=== PATIENT | female | born 1950 | race Caucasian/White ===

== ENCOUNTER 2022-03-28 16:11 | Emergency (ER) | payer MEDICARE, SELFPAY ==
--- NOTE | ~2022-03-28 | XR_ITS ---
EXAMINATION: XR chest 2V 03/28/2022 17:19 INDICATION: Dizziness. Chest pain. PROCEDURE: 2 view chest COMPARISON: No prior studies for comparison. FINDINGS: The lungs are clear. The cardiomediastinal silhouette is within normal limits. There are no pleural effusions. There is no pneumothorax suspected. There is a hiatal hernia. IMPRESSION: 1: NO ACUTE CARDIOPULMONARY DISEASE. Reviewed, dictated and finalized at location A.
--- NOTE | ~2022-03-28 | CT_ITS ---
EXAMINATION: CTA brain carotid DATE: 03/28/2022 20:46 CDT INDICATION: New vertigo. TECHNIQUE: Computed tomographic angiography (CTA) of the head was performed without and with 100 mL O mnipaque-350 intravenous contrast. CTA of the neck was performed with intravenous contrast. The dose- length product was 1077.22 mGy-cm. Maximum intensity projection and volume rendered 3D-reconstruction s were created by the technologist on a separate workstation. Automated exposure control and iterativ e reconstruction technique were employed. COMPARISON: CT dated 03/28/2022. FINDINGS: HEAD CTA: The anterior, middle and posterior cerebral arteries are symmetric without aneurysm, signif icant stenosis, occlusion. Vertebral and basilar arteries are unremarkable. NECK CTA: The visualized aspects of the thoracic aorta are unremarkable. There is no significant athe rosclerotic change of the carotid arteries. The common, internal and external carotid arteries are sy mmetric without significant stenosis, occlusion or dissection. Vertebral arteries are unremarkable. L leatha apices are unremarkable. There is 0% stenosis of the proximal right internal carotid artery relative to normal distal artery l umen diameter (NASCET criteria). There is 0% stenosis of the proximal left internal carotid artery re lative to normal distal artery lumen diameter. IMPRESSION: 1: No significant vascular abnormality of the neck or intracranial arteries. No evidence for signifi cant stenosis, occlusion, dissection or aneurysm. Reviewed, dictated and finalized at location A. IMPRESSION: 1: No significant vascular abnormality of the neck or intracranial arteries. N o evidence for significant stenosis, occlusion, dissection or aneurysm.
--- NOTE | ~2022-03-28 | CT_ITS ---
EXAMINATION: CT BRAIN W/O DATE: 03/28/2022 17:15 INDICATION: Dizziness TECHNIQUE: Computed tomography (CT) of the head was performed without intravenous contrast. The dose- length product was 529.67 mGy-cm. Automated exposure control and iterative reconstruction technique w ere employed. COMPARISON: No prior studies for comparison. FINDINGS: Normal brain parenchymal volume for age. Normal flanagan-white differentiation. No acute intrac ranial hemorrhage, infarction, mass or mass effect. There are scattered mild periventricular and subc ortical white matter changes, most likely related to small vessel ischemic disease (microangiopathy). No ventriculomegaly or midline shift. Midline sagittal images demonstrate a normal corpus callosum, c raniovertebral junction and sella turcica. Basilar cisterns are patent. Paranasal sinuses and mastoids are pneumatized. No depressed skull fractures. IMPRESSION: 1. No acute intracranial abnormality. 2: Chronic age-related findings. Reviewed, dictated and finalized at location A.
[2022-03-28 16:19] VITALS: BP 181/83; PULSE 83; RESP 16; TEMP 35.7; O2SAT 95
--- NOTE | 2022-03-28 16:27 | ECG_ITS ---
Measurements Intervals [place] Rate: 81 P: 57 NM: 144 QRS: 48 QRSD: 155 T: 13 QT: 421 QTc: 489 Interpretive Statements SINUS RHYTHM RIGHT BUNDLE BRANCH BLOCK BASELINE ARTIFACT- II, III, AVF, V5-V6 ABNORMAL ECG Electronically Signed On 03-28-2022 17:19:26 CDT by Joshua Simpson D.O.
[2022-03-28 17:14] LABS: Basophils Absolute Auto 0.1 K/mm3 (0.0-0.1); Eosinophils Absolute Auto 0.2 K/mm3 (0-0.3); Eosinophils Percent Auto 4.1 % (0-4.4); Hematocrit 42.9 % (37.0-47.0); Hemoglobin 14.1 g/dL (12.0-15.0); Immature Granulocyte Absolute 0.02 K/mm3 (0.00-0.031); Immature Granulocyte Percent A 0.4 % (0-0.5); Lymphocytes Absolute Auto 1.67 K/mm3 (0.9-3.2); Mean Corpuscular HGB Conc 32.9 g/dl (32-36); Mean Corpuscular Hemoglobin 34.5 pg (26-34); Mean Corpuscular Volume 104.9 fl (80-100); Mean Platelet Volume 10.1 fl (7.4-10.4); Monocytes Absolute Auto 0.3 K/mm3 (0.1-0.6); Monocytes Percent Auto 5.6 % (2.6-8.5); Neutrophils Absolute Auto 3.1 K/mm3 (1.3-6.7); Neutrophils Percent Auto 56.9 % (45.5-73.1); Platelet Count Result 283 k/mm3 (150-375); Red Blood Count 4.09 M/mm3 (4.2-5.4); Red Cell Distribution Width 12.5 % (11.5-14.5); White Blood Count 5.4 K/mm3 (4.5-10.0)
[2022-03-28 17:29] LABS: Alanine Aminotransferase 19 U/L (6-35); Albumin Level 4.5 g/dL (3.5-5.1); Alkaline Phosphatase 101 U/L (38-126); Anion Gap 9 mmol/L (8-16); Aspartate Amino Transferase 33 U/L (14-36); Bilirubin,Total 0.5 mg/dL (0.2-1.3); Blood Urea Nitrogen 16 mg/dL (7-17); Calcium 9.1 mg/dL (8.4-10.2); Carbon Dioxide 27 mmol/L (22-30); Chloride 105 mmol/L (98-107); Estimated CRCL calculation 50 ml/min; Estimated Glomerular Filt Rate 55; Glucose 98 mg/dL (65-110); Sodium 141 mmol/L (137-145)
--- NOTE | 2022-03-28 17:35 | ED.DIZZY ---
HPI - Dizziness General Chief Complaint: Dizziness Stated Complaint: Dizzy, Off Balance Time Seen by Provider: 03/28/22 17:02 Source: patient Mode of arrival: ambulatory Limitations: no limitations History of Present Illness HPI Narrative: This is a 71-year-old female that presents to the emergency department for dizziness ongoing since yesterday. Today reports she feels like the room is spinning and she feels off balance. No previous similar episodes. Reports her balance got worse today which prompted her to be seen. No associated symptoms. Denies fever, chest pain, shortness of breath, vision changes, vomiting, numbness, or weakness. Related Data Home Medications Medication Instructions Recorded Confirmed escitalopram oxalate 20 mg tablet 20 tablet PO DAILY 03/28/22 03/28/22 nortriptyline 75 mg capsule 75 cap PO DAILY 03/28/22 03/28/22 Allergies Allergy/AdvReac Type Severity Reaction Status Date / Time Penicillins Allergy Unknown Other Verified 03/28/22 16:32 Review of Systems Review of Systems: CONSTITUTIONAL: Denies feve EYES: Denies visual changes CARDIOVASCULAR: Denies chest pain, palpitations, or edema. RESPIRATORY: Denies dyspnea. GASTROINTESTINAL: Reports nausea. Denies vomiting NEUROLOGIC: Denies headache, numbness, or weakness. All systems reviewed & are unremarkable except as noted in HPI and below PMFSH Past Medical History Medical History (Updated 03/28/22 @ 22:05 by Jud Chacko PA-C) History of depression Social History Social History (Updated 03/28/22 @ 17:38 by Jud Chacko PA-C) Smoking status: Never smoker Exam Narrative: GENERAL: Well-appearing, well-nourished, and in no acute distress. HEAD: Normocephalic, atraumatic. EYES: PERRLA and EOMI. ENT: Nares clear, no rhinorrhea or epistaxis. Mucous membranes moist. Oropharynx without tonsillar hypertrophy exudate or other lesions. Bilateral TMs pearly flanagan non-bulging NECK: Supple. No adenopathy or masses. No carotid bruits or JVD CHEST: Clear to auscultation. No respiratory distress. No wheezes rales or rhonchi HEART: Regular rate and rhythm. No murmur heard. Normal peripheral pulses. EXTREMITIES: Normal range of motion. No edema. SKIN: Warm, dry, no rash. NEURO: No focal deficits. Alert and oriented x3. Cranial nerves II through XII grossly intact PSYCH: Normal mood and affect Course Vital Signs Vital signs: Vital Signs Temperature 96.3 F L 03/28/22 16:19 Pulse Rate 83 03/28/22 16:19 Respiratory Rate 16 03/28/22 16:19 Blood Pressure 181/83 H 03/28/22 16:19 Pulse Oximetry 95 03/28/22 16:19 Oxygen Delivery Room Air 03/28/22 16:19 Temperature 96.3 F L 03/28/22 16:19 Pulse Rate 86 03/28/22 19:40 Respiratory Rate 14 03/28/22 19:28 Blood Pressure 165/78 H 03/28/22 19:40 Pulse Oximetry 96 03/28/22 19:28 Oxygen Delivery Room Air 03/28/22 16:19 MDM - Dizziness MDM Narrative Medical decision making narrative: Patient presents to the emergency department for vertigo present since yesterday. She is afebrile and nontoxic-appearing. Her vitals are stable. Patient has been somewhat hypertensive while in the ED, largely in the 160s systolic. CBC and metabolic panel without concerning findings. UA without concern for infection. CT scan of the brain without concerning findings. Chest x-ray without acute cardiopulmonary abnormality. EKG without concerning changes. CTA of the brain and carotid without acute changes. Patient given IV fluids, meclizine, Zofran and Valium with relief. Able to ambulate with a steady gait. Patient is stable and felt appropriate for further outpatient evaluation. Was instructed to have close follow-up with her primary doctor. She was given warnings to return to the ER Lab Data Attestation: I reviewed the patient's lab results. Result diagrams: 03/28/22 16:43 03/28/22 16:43 Labs: Lab Results 03/28/22 03/28/22 03/28/22
[2022-03-28] MEDS: ONDANSETRON INJ 4 MG/2 ML VIAL IV PUSH (17:45)
[2022-03-28] MEDS: MECLIZINE HCL 25 MG TABLET PO (17:45)
[2022-03-28] MEDS: SODIUM CHLORIDE 0.9% IV 500 ML 999 ML IV CONT (17:46)
[2022-03-28 18:23] LABS: Color Urine Yellow (Yellow); RBC Urine 0-2 /hpf (0-2); Squamous Epithelial Cell Urine Rare /hpf (Few); WBC Urine 0-3 /hpf
[2022-03-28 18:24] LABS: Appearance Urine Clear (Clear)
[2022-03-28 18:25] LABS: Add Urine Microscopic? YES; Bilirubin Urine Negative (Negative); Blood Urine Trace-Intact (Negative); Glucose Urine UA Negative (Negative); Ketones Urine Negative (Negative); Leukocyte Esterase Ur Trace LEU/UL (Negative); Nitrate Urine Negative (Negative); Protein Urine Negative (Negative); Specific Grav Ur 1.015 (1.001-1.035); Urobilinogen Urine 0.2 mg/dL (<2.0)
--- NOTE | 2022-03-28 19:15 | PC.NURSE ---
Patient report given to SAE Claire and SAE Garrett. All questions answered and care of patient transferred.
[2022-03-28 19:28] VITALS: BP 164/68; PULSE 78; RESP 14; O2SAT 96
--- NOTE | 2022-03-28 19:35 | PC.NURSE ---
Bedside report received from Melissa QUEVEDO. This RN assumed care at this time.
[2022-03-28 19:36] VITALS: BP 174/80; PULSE 82
[2022-03-28 19:38] VITALS: BP 169/72; PULSE 81
[2022-03-28 19:40] VITALS: BP 165/78; PULSE 86
[2022-03-28] MEDS: diazePAM INJ (*CRX) 10 MG/2 ML SYRINGE 5 MG IV PUSH (20:06)
== END 2022-03-28 22:45 | disposition home or self-care (01) ==
PROVIDERS: Emergency Medicine; Physician Assistant; Emergency Provider Emergency Medicine
DX: R42 Dizziness and giddiness (principal); F32.A Depression, unspecified; I45.10 Unspecified right bundle-branch block
CPT/HCPCS: 36415; 70450; 70496; 70498; 71046; 80053; 81001; 85025; 93005; 96361; 96374; 96375; 99284; A9270; J2405; J3360; J7040; Q9967

== ENCOUNTER 2023-09-14 17:02 | Emergency (ER) | payer MEDICARE, SELFPAY ==
[2023-09-14 17:06] VITALS: BP 177/75; PULSE 93; RESP 17; TEMP 36.9; O2SAT 97
--- NOTE | 2023-09-14 17:09 | ECG_ITS ---
Measurements Intervals [place] Rate: 91 P: 74 MT: 151 QRS: 46 QRSD: 145 T: 5 QT: 391 QTc: 483 Interpretive Statements SINUS RHYTHM RIGHT BUNDLE BRANCH BLOCK BASELINE WANDER- I, II, III, AVF ABNORMAL ECG COMPARED TO ECG 03/28/2022 16:20:32 NO SIGNIFICANT CHANGES Electronically Signed On 09-14-2023 19:17:04 NIGHT CUSTODIAN by Joshua Simpson D.O.
--- NOTE | 2023-09-14 17:19 | ED.GENADULT ---
[facility] - General Adult General Chief complaint: Recheck/Abnormal Lab/Rx Stated complaint: ELEVATED POTASSIUM Time Seen by Provider: 09/14/23 17:18 Source: patient Mode of arrival: ambulatory Limitations: no limitations History of Present Illness HPI narrative: This is a 73-year-old female with PMH of fibromyalgia, MDD who presents to the ED with chief complaint of high potassium on blood draw by her psychiatrist today. Reports that she has been feeling very fatigued lately so her psychiatrist ordered labs. Patient states that she has been feeling very sleepy which is abnormal for her, especially with her fibromyalgia. Denies any recent medication changes. Denies chest pain, shortness of breath, palpitations, leg swelling, edema, fevers, chills. Denies numbness, weakness, LOC. Related Data Home Medications Medication Instructions Recorded Confirmed escitalopram oxalate 20 mg tablet 20 tablet PO DAILY 03/28/22 03/28/22 nortriptyline 75 mg capsule 75 cap PO DAILY 03/28/22 03/28/22 Allergies Allergy/AdvReac Type Severity Reaction Status Date / Time Penicillins Allergy Unknown Other Verified 04/01/22 10:27 Review of Systems Review of Systems: All systems as dictated in [facility] Past Medical History Medical History (Updated 09/14/23 @ 18:20 by Demarco Heredia PA-C) History of depression Social History Social History (System 04/01/22 @ 10:27 by Walter Sheikh) Smoking status: Never smoker Exam Narrative: GENERAL: Well-appearing, well-nourished, and in no acute distress. HEAD: Normocephalic, atraumatic. EYES: PERRLA and EOMI. ENT: Nares clear, no rhinorrhea or epistaxis. Mucous membranes moist. Oropharynx without tonsillar hypertrophy exudate or other lesions. NECK: Supple. No adenopathy or masses. CHEST: No respiratory distress. Clear to auscultation. No wheezes rales or rhonchi HEART: Regular rate and rhythm. No murmur heard. Normal peripheral pulses. ABDOMEN: Soft, nontender, nondistended, normal active bowel sounds. MSK: Normal range of motion. No edema. SKIN: Warm, dry, no rash. NEURO: Alert and oriented x3. No focal deficits. PSYCH: Normal mood and affect. Course Vital Signs Vital signs: Vital Signs Temperature 98.4 F 11/13/23 17:06 Pulse Rate 93 09/14/23 17:06 Respiratory Rate 17 09/14/23 17:06 Blood Pressure 177/75 H 09/14/23 17:06 Pulse Oximetry 97 09/14/23 17:06 Oxygen Delivery Room Air 09/14/23 17:06 Temperature 98.4 F 09/14/23 17:06 Pulse Rate 93 09/14/23 17:06 Respiratory Rate 17 09/14/23 17:06 Blood Pressure 177/75 H 09/14/23 17:06 Pulse Oximetry 97 09/14/23 17:06 Oxygen Delivery Room Air 09/14/23 17:06 Medical Decision Making MDM Narrative Medical decision making narrative: This is a 73-year-old female who presents to the ED with chief complaint of high potassium measured by outpatient lab today. She is not symptomatic with this. She does state chronic fatigue but no other complaints. Vitals are normal. Exam is benign. EKG shows RBBB which is unchanged. No evidence of acute hyperkalemia on ECG. Lab work reveals a normal CBC and normal CMP. Potassium 4.5. Discussed with the patient that her lab work is within normal limits. It was probably a lab error at her outpatient facility. She remains asymptomatic. She would like to follow-up with her PCP and psychiatrist for the fatigue. My DC Vital Signs Vital Signs: Vital Signs Temperature 98.4 F 09/14/23 17:06 Pulse Rate 93 09/14/23 17:06 Respiratory Rate 17 09/14/23 17:06 Blood Pressure 177/75 H 09/14/23 17:06 Pulse Oximetry 97 09/14/23 17:06 Oxygen Delivery Room Air 09/14/23 17:06 Temperature 98.4 F 09/14/23 17:06 Pulse Rate 93 09/14/23 17:06 Respiratory Rate 17 09/14/23 17:06 Blood Pressure 177/75 H 09/14/23 17:06 Pulse Oximetry 97 09/14/23 17:06 Oxygen Delivery Room Air 09/14/23 17:06 Lab Data 09/14/23
[2023-09-14 17:28] LABS: Basophils Absolute Auto 0.1 K/mm3 (0.0-0.1); Basophils Percent Auto 1.2 % (0.2-1.2); Eosinophils Absolute Auto 0.1 K/mm3 (0-0.3); Eosinophils Percent Auto 1.9 % (0-4.4); Hematocrit 40.9 % (37.0-47.0); Hemoglobin 13.4 g/dL (12.0-15.0); Immature Granulocyte Absolute 0.03 K/mm3 (0.00-0.031); Immature Granulocyte Percent A 0.4 % (0-0.5); Lymphocytes Absolute Auto 1.73 K/mm3 (0.9-3.2); Mean Corpuscular HGB Conc 32.8 g/dl (32-36); Mean Corpuscular Hemoglobin 35.4 pg (26-34); Mean Corpuscular Volume 108.2 fl (80-100); Mean Platelet Volume 9.5 fl (7.4-10.4); Monocytes Absolute Auto 0.3 K/mm3 (0.1-0.6); Neutrophils Absolute Auto 4.7 K/mm3 (1.3-6.7); Neutrophils Percent Auto 67.5 % (45.5-73.1); Platelet Count Result 280 k/mm3 (150-375); Red Blood Count 3.78 M/mm3 (4.2-5.4); Red Cell Distribution Width 13.6 % (11.5-14.5); White Blood Count 6.9 K/mm3 (4.5-10.0)
[2023-09-14 17:45] LABS: Alanine Aminotransferase 26 U/L (6-35); Albumin Level 4.9 g/dL (3.5-5.1); Alkaline Phosphatase 97 U/L (38-126); Anion Gap 18 mmol/L (8-16); Aspartate Amino Transferase 42 U/L (14-36); Bilirubin,Total 0.5 mg/dL (0.2-1.3); Blood Urea Nitrogen 16 mg/dL (7-17); Calcium 9.6 mg/dL (8.4-10.2); Carbon Dioxide 18 mmol/L (22-30); Chloride 104 mmol/L (98-107); Estimated CRCL calculation 48 ml/min; Estimated Glomerular Filt Rate 55; Glucose 110 mg/dL (65-110); Magnesium 2.1 mg/dL (1.6-2.3); Phosphorus 3.9 mg/dL (2.5-4.5); Potassium 4.5 mmol/L (3.4-5.0); Sodium 140 mmol/L (137-145)
== END 2023-09-14 18:31 | disposition home or self-care (01) ==
LOC: ANHED 18:24
PROVIDERS: Emergency Medicine; Emergency Provider Physician Assistant
DX: Z04.89 Encounter for examination and observation for other specified reasons (principal); M79.7 Fibromyalgia; F32.9 Major depressive disorder, single episode, unspecified; I45.10 Unspecified right bundle-branch block
CPT/HCPCS: 36415; 80053; 83735; 84100; 85025; 93005; 99283

== ENCOUNTER 2025-08-10 17:00 | Emergency (ER) | payer MEDICARE, SELFPAY ==
--- NOTE | ~2025-08-10 | XR_ITS ---
EXAMINATION: XR knee LT 3V, 08/10/2025 17:40 CDT HISTORY: fall COMPARISON: No comparisons available. Findings: No acute fracture or malalignment. No significant degenerative changes. Soft tissues unremarkable. Impression: No acute fracture or malalignment. Reviewed, dictated and finalized at location P. Impression: No acute fracture or malalignment.
--- NOTE | ~2025-08-10 | XR_ITS ---
EXAMINATION: XR hip LT 2V w AP pelvis, 08/10/2025 17:40 CDT HISTORY: fall COMPARISON: No comparisons available. Findings: No acute fracture or malalignment. No significant degenerative changes. Soft tissues unremarkable. Impression: No acute fracture or malalignment. Reviewed, dictated and finalized at location P. Impression: No acute fracture or malalignment.
--- NOTE | ~2025-08-10 | CT_ITS ---
EXAMINATION: CT brain wo con DATE: 08/10/2025 18:10 INDICATION: Fall TECHNIQUE: Computed tomography (CT) of the head was performed without intravenous contrast. Sagittal and coronal reconstructions were performed. The mA was adjusted according to patient size. Iterative reconstruction technique was employed. The dose-length product was 605.33 mGy-cm. COMPARISON: head CT dated 03/28/2022 FINDINGS: No fracture. No acute intracranial hemorrhage, acute infarction or abnormal extra axial fluid collection. There is mild scattered white matter hypoattenuation consistent with chronic small vessel ischemic disease. Ventricles are normal and symmetric. No mass/mass effect. The orbits, paranasal sinuses and mastoid air cells are normal. IMPRESSION: 1. No fracture or acute intracranial process. 2. Age-related changes including mild scattered white matter hypoattenuation consistent with chronic small vessel ischemic disease. Reviewed, dictated and finalized at location A. IMPRESSION: 1. No fracture or acute intracranial process. 2. Age-related changes including mild scattered white matter hypoattenuation co nsistent with chronic small vessel ischemic disease.
--- NOTE | 2025-08-10 17:22 | ED.GENADULT ---
HPI - General Adult General Chief complaint: Fall <Jacqueline Fam, SWEAT BAND SEPARATOR - Last Filed: 08/10/25 18:39> Stated complaint: Fall-left knee/hip injury, Dizziness <Jacqueline Encinas March, SWEAT BAND SEPARATOR - Last Filed: 08/10/25 18:39> Time Seen by Provider: 08/10/25 17:23 <Jacqueline Encinas March, - Last Filed: 08/10/25 18:39> Focused HPI: Yolanda Forte is a 75 y/o female who presents after a fall at 1500, SHe states she is having pain to her left hip and left hip and feeling dizzy. She denies LOC, she states that she doesn't think she hit her head. not on any blood thinners. GENERAL: Well-appearing, well-nourished, and in no acute distress. HEAD: Normocephalic, atraumatic. CHEST: Clear to auscultation. ?No respiratory distress. HEART: Regular rate and rhythm.? NEURO: ?Alert and oriented x3. Patient screened in triage and initial orders placed.? ?Additional care and disposition to be based upon?diagnostic testing and treatment. <Jacqueline Encinas March, - Last Filed: 08/10/25 18:39> History of Present Illness HPI narrative: Patient is a 75-year-old female presents to the emergency department accompanied by daughter who notes had a mechanical fall, tripped, lying on concrete, pain in her left knee and left hip, denies hitting her head or having loss consciousness, and no use of blood thinners. Denies any sensation of her knee getting out. Last tetanus shot was about 10 years ago. <Jay Colin DO - Last Filed: 08/10/25 21:53> Related Data Home medications: Home Medications ?Medication ?Instructions ?Recorded ?Confirmed ?Last Taken ?Type escitalopram oxalate 20 mg tablet 20 tablet PO DAILY 03/28/22 03/28/22 Unknown History nortriptyline 75 mg capsule 75 cap PO DAILY 03/28/22 03/28/22 Unknown History <Jacqueline Fam, SWEAT BAND SEPARATOR - Last Filed: 08/10/25 18:39> Allergies/adverse reactions: Allergies Allergy/AdvReac Type Severity Reaction Status Date / Time Penicillins Allergy Unknown Other Verified 08/10/25 17:02 <Jacqueline Encinas March, SWEAT BAND SEPARATOR - Last Filed: 08/10/25 18:39> Review of Systems Review of Systems: A 10 system review of systems was completed on the patient and is negative except for what is stated in the HPI. Nursing and ancillary documentation was reviewed. <Jay Colin DO - Last Filed: 08/10/25 21:53> [facility]LY [facility] Past Medical History Medical History: Medical History (Updated 08/10/25 @ 21:52 by Jay Colin DO) History of depression <Jacqueline Encinas March, SWEAT BAND SEPARATOR - Last Filed: 08/10/25 18:39> Social History Social History: Social History (System 04/01/22 @ 10:27 by Walter Sheikh) Smoking status: Never smoker <Jacqueline MasAshley March, SWEAT BAND SEPARATOR - Last Filed: 08/10/25 18:39> Exam Narrative: CONST: No acute distress. Well nourished. HENMT: Head is normocephalic and atraumatic. Moist mucous membranes. No posterior oropharynx erythema. EYES: No scleral icterus. No conjunctival injection or pallor. PERRL. NECK: No meningeal signs. RESP: Able to speak in full sentences. Normal respiratory effort. CTAB. CARDIO: Regular rate. Regular rhythm. 2+ DP and radial pulses bilaterally. GI: Nondistended. No tenderness to palpation. Soft. : No CVA tenderness to palpation. SKIN: No rashes. Superficial hemostatic abrasion to the left anterior knee, scant surrounding swelling and ecchymosis. NEURO: Oriented x3. Moves all extremities. EXTREM/MSK/BACK: No pedal edema. No ligament laxity with testing of the left knee joint. Left hip is nontender to palpation. No other extremity tenderness palpation aside from the left anterior knee. No midline vertebral tenderness to palpation or palpable step-offs. PSYCH: Normal affect. <Jay Colin DO - Last Filed: 08/10/25 21:53> Course Vital Signs Vital signs: Vital Signs Temperature 98.1 F 08/10/25 17:32 Pulse Rate 72 08/10/25 17:32 Respiratory Rate 16 08/10/25 17:32 Blood Pressure 175/62 H 08/10/25 17:32 Pulse Oximetry 100 08/10/25 17:32 Oxygen Delivery Room Air 08/10/25 17:32 Temperature 98.1 F 08/10/25 17:32 Pulse Rate 74 08/10/25 18:55 Respiratory Rate 16 08/10/25 18:55 Blood Pressure 144/65 H 08/10/25 18:55 Pulse Oximetry 98 08/10/25 18:55 Oxygen Delivery Room Air 08/10/25 17:32 <Jacqueline Fam, SWEAT BAND SEPARATOR - Last Filed: 08/10/25 18:39> Vital Signs Temperature 98.1 F 08/10/25 17:32 Pulse Rate 72 08/10/25 17:32 Respiratory Rate 16 08/10/25 17:32 Blood Pressure 175/62 H 08/10/25 17:32 Pulse Oximetry 100 08/10/25 17:32 Oxygen Delivery Room Air 08/10/25 17:32 Temperature 98.1 F 08/10/25 17:32 Pulse Rate 74 08/10/25 18:55 Respiratory Rate 16 08/10/25 18:55 Blood Pressure 144/65 H 08/10/25 18:55 Pulse Oximetry 98 08/10/25 18:55 Oxygen Delivery Room Air 08/10/25 17:32 <Jay Colin, DO - Last Filed: 08/10/25 21:53> Medical Decision Making MDM Narrative Medical decision making narrative: Patient presents with the above complaint. Initial vitals are remarkable for no significant abnormalities. Physical examination as noted above. DDx: Fracture, contusion, sprain, strain, other acute traumatic injuries. Plan discussed: CT head, left knee x-ray, pelvis and left hip x-ray, Toradol, Tdap booster for tetanus prophylaxis, Flexeril, Tylenol, Justin wrap, extremity elevation, ice pack. Imaging reviewed, no acute abnormalities. Patient was reassessed at the bedside. No changes in physical exam. Patient is in no acute distress. The patient has remained stable throughout the entire ED visit. Rest ice compression and elevation discussed. Counseled patient regarding diagnostic results and potential diagnosis. Anticipatory guidance provided. Patient instructed to follow up with PCP within 1 week. Patient counseled on: false reassurance from an emergency department evaluation; no current evidence of a medical emergency; return immediately for any new, recurrent, worsening, concerning, or refractory symptoms. Patient prescribed Flexeril, Tylenol, Motrin. Prescription sent to preferred pharmacy. Medications discussed with patient. Additional verbal and printed discharge instructions were given and discussed with the patient. Patient verbally acknowledges understanding of condition and discharge instructions. All questions were answered to the patient's satisfaction. Patient is in agreement with the plan of care. The patient is stable for discharge and was discharged without incident. <Jay Colin, - Last Filed: 08/10/25 21:53> Vital Signs Vital Signs: Vital Signs Temperature 98.1 F 08/10/25 17:32 Pulse Rate 72 08/10/25 17:32 Respiratory Rate 16 08/10/25 17:32 Blood Pressure 175/62 H 08/10/25 17:32 Pulse Oximetry 100 08/10/25 17:32 Oxygen Delivery Room Air 08/10/25 17:32 Temperature 98.1 F 08/10/25 17:32 Pulse Rate 74 08/10/25 18:55 Respiratory Rate 16 08/10/25 18:55 Blood Pressure 144/65 H 08/10/25 18:55 Pulse Oximetry 98 08/10/25 18:55 Oxygen Delivery Room Air 08/10/25 17:32 <Jacqueline Fam, SWEAT BAND SEPARATOR - Last Filed: 08/10/25 18:39> Vital Signs Temperature 98.1 F 08/10/25 17:32 Pulse Rate 72 08/10/25 17:32 Respiratory Rate 16 08/10/25 17:32 Blood Pressure 175/62 H 08/10/25 17:32 Pulse Oximetry 100 08/10/25 17:32 Oxygen Delivery Room Air 08/10/25 17:32 Temperature 98.1 F 08/10/25 17:32 Pulse Rate 74 08/10/25 18:55 Respiratory Rate 16 08/10/25 18:55 Blood Pressure 144/65 H 08/10/25 18:55 Pulse Oximetry 98 08/10/25 18:55 Oxygen Delivery Room Air 08/10/25 17:32 <Jay Colin DO - Last Filed: 08/10/25 21:53> Discharge Plan Discharge Clinical Impression: Fall, Contusion of knee, left <Jacqueline Fam, SWEAT BAND SEPARATOR - Last Filed: 08/10/25 18:39> Patient Disposition: Home <Jacqueline Fam, SWEAT BAND SEPARATOR - Last Filed: 08/10/25 18:39> Condition: Stable <Jacqueline Encinas March, Last Filed: 08/10/25 18:39> Instructions: Antibiotic Form, Contusion in Adults (ED), Abrasion (ED), Knee Pain (ED), P.R.I.C.E. Treatment (ED) <Jacqueline Encinas March, - Last Filed: 08/10/25 18:39> Additional Instructions: Keep the left leg elevated above your heart to help with swelling, wear the Justin wrap to also help with swelling, ice packs to the area discomfort for 15 minutes at a time every hour for the 1st 40-72 hours, do not closely with ice pack in place. Take Tylenol Motrin and Flexeril as needed for discomfort. Follow up with the primary care physician in the next 5-7 days for reassessment is you may benefit from further imaging such as repeat x-rays or MRI and potentially referral to Orthopedic surgery. Return immediately to the emergency department for any new or concerning symptoms especially any emergent concerns for life, limb, eyesight. <Jacqueline Encinas March, Last Filed: 08/10/25 18:39> Patient Language: Norwegian <Jacqueline Encinas March, - Last Filed: 08/10/25 18:39> Prescriptions: New acetaminophen 500 mg tablet 500 mg PO Q6H PRN (Reason: pain) Qty: 30 0RF ibuprofen 400 mg tablet 400 mg PO Q6H PRN (Reason: pain) Qty: 30 0RF cyclobenzaprine 5 mg tablet 5 mg PO TID PRN (Reason: muscle spasm) Qty: 30 0RF No Action nortriptyline 75 mg capsule 75 cap PO DAILY escitalopram oxalate 20 mg tablet 20 tablet PO DAILY meclizine 25 mg tablet 25 mg PO BID PRN (Reason: dizziness) Qty: 10 0RF <Jacqueline Encinas March, Last Filed: 08/10/25 18:39> Follow-up/Referrals: Monica Walton MD [Physician, Family Practice] - 1 Week PHYSICIAN NOT ON STAFF,NONSTAFF [Primary Care Provider] <Jacqueline Encinas March, Last Filed: 08/10/25 18:39> Time of Disposition: 21:53 <Jacqueline Fam APRN - Last Filed: 08/10/25 18:39> 21:53 <Jay Colin DO - Last Filed: 08/10/25 21:53>
[2025-08-10 17:32] VITALS: BP 175/62; PULSE 72; RESP 16; TEMP 36.7; O2SAT 100
[2025-08-10 18:55] VITALS: BP 144/65; PULSE 74; RESP 16; O2SAT 98
[2025-08-10] MEDS: ACETAMINOPHEN 500 MG TABLET 1000 MG PO (22:07)
[2025-08-10] MEDS: CYCLOBENZAPRINE HCL 10 MG TABLET PO (22:07)
[2025-08-10] MEDS: TETANUS,DIPHTHERIA,AC PERTUSSIS ADULT (0.5 ML) BOOSTRIX IM (22:08)
[2025-08-10] MEDS: KETOROLAC 30 MG/ML VIAL (*BKC) 15 MG IM (22:09)
[2025-08-10 22:35] VITALS: BP 148/82; PULSE 74; RESP 16; O2SAT 100
== END 2025-08-10 22:46 | disposition home or self-care (01) ==
PROVIDERS: Emergency Provider Student in an Organized Health Care Education/Training Program
DX: S80.02XA Contusion of left knee, initial encounter (principal); Z23 Encounter for immunization; F32.A Depression, unspecified; Z79.899 Other long term (current) drug therapy; W19.XXXA Unspecified fall, initial encounter
CPT/HCPCS: 70450; 73502; 73562; 90471; 90715; 96372; 99284; A9270; J1885

== ENCOUNTER 2025-08-30 11:46 | Inpatient (IN) | payer MEDICARE, SELFPAY ==
[2025-08-30] VITALS (9 sets, daily range): BP systolic 159–207; BP diastolic 67–100; PULSE 80–97; RESP 15–20; TEMP 36.4–37.1; O2SAT 95–100; BMI 26.4
--- NOTE | ~2025-08-30 | MR_ITS ---
EXAMINATION: MR brain/brain stem wo con DATE: 08/31/2025 12:10 INDICATION: Disequilibrium. TECHNIQUE: Magnetic resonance imaging (MRI) of the brain and brainstem was performed without intravenous contrast. COMPARISON: Head CT 08/30/2025 FINDINGS: There are scattered areas of nonspecific increased T2-weighted signal intensity in the cerebral white matter, which is within normal limits for the patient's age. There is no intracranial hemorrhage, acute infarction, or abnormal intracranial mass lesion. The ventricles are normal in size. The orbits are normal. There is mild mucosal thickening in the ethmoid sinuses. There is a small right mastoid effusion. IMPRESSION: 1. Normal aging brain. Reviewed, dictated and finalized at location E. IMPRESSION: 1. Normal aging brain.
--- NOTE | ~2025-08-30 | CT_ITS ---
EXAMINATION: CT brain wo con DATE: 08/30/2025 13:57 INDICATION: Dizziness. TECHNIQUE: Computed tomography (CT) of the head was performed without intravenous contrast. The mA was adjusted according to patient size. Iterative reconstruction technique was employed. The dose-length product was 605.33 mGy-cm. COMPARISON: Head CT 08/10/2025 FINDINGS: There is no intracranial hemorrhage, acute infarction, or abnormal intracranial mass lesion. There are scattered areas of low attenuation in the cerebral white matter, which is within normal limits for the patient's age. The ventricles are normal in size. The orbits are normal. There is mild mucosal thickening in the paranasal sinuses. The mastoid air cells are normal. IMPRESSION: 1. Normal aging brain. Reviewed, dictated and finalized at location E. IMPRESSION: 1. Normal aging brain.
--- NOTE | ~2025-08-30 | MR_ITS ---
EXAMINATION: MR abdomen wo/w con DATE: 08/31/2025 12:43 INDICATION: Abnormal liver imaging TECHNIQUE: Magnetic resonance imaging (MRI) of the abdomen was performed without and with 14 mL Multihance intravenous contrast. Sequences included coronal T2- weighted SS-FSE, coronal and axial FS 2D-FIESTA, axial STIR FSE, axial T2- weighted SS-FSE, axial T2-weighted FS SS-FSE, axial diffusion-weighted SE, axial dual-echo T1-weighted FSPGR, and axial and coronal T1-weighted LAVA. Postcontrast axial T1-weighted LAVA images were obtained in a time course. Postcontrast coronal T1-weighted LAVA images were obtained. COMPARISON: CT dated 08/30/2025 FINDINGS: Heart size is normal. No pericardial or pleural effusion. Moderate to large sliding-type hiatal hernia. Diffuse hepatic steatosis with signal dropout on the opposed phase imaging. There is 2.4 x 1.2 cm region of more focal fat with significantly greater degree of signal dropout on opposed phase imaging which position at the the apex of the confluence of the left and right navarro hepatis which corresponds in location to the low-attenuation lesion on prior CT imaging which would also be consistent with focal hepatic steatosis. Cholecystectomy clips the gallbladder fossa. There is spleen and bilateral adrenal glands are normal. Simple appearing 6 mm nonenhancing T2 hyperintense cyst at the tail of the pancreas. Small bilateral renal cysts the largest on the left a 10 mm cyst with single thin internal septation. Bowels are normal with no obstruction. Bladder is distended. Foci susceptibility artifact in the deep pelvis related to prior hysterectomy. No pathologically enlarged abdominal or pelvic lymp hadenopathy. Moderate to severe lower lumbar spondylosis. No pathologic marrow replacing process. IMPRESSION: 1. Diffuse hepatic steatosis with 2.4 x 1.2 cm more focal collection of fat at the junction of the left and right navarro hepatis corresponding to the hypodense lesion of concern on prior CT. 2. Incidental 6 mm simple appearing cystic lesion at the tail the pancreas. Recommend 2 year follow-up pre and postcontrast MRI. 3. Moderate to large sliding-type hiatal hernia. Reviewed, dictated and finalized at location A. IMPRESSION: 1. Diffuse hepatic steatosis with 2.4 x 1.2 cm more focal collection of fat at the junction of the left and right navarro hepatis corresponding to the hypodense lesion of concern on prior CT. 2. Incidental 6 mm simple appearing cystic lesion at the tail the pancreas. Rec ommend 2 year follow-up pre and postcontrast MRI. 3. Moderate to large sliding-type hiatal hernia.
--- NOTE | ~2025-08-30 | CT_ITS ---
Exam: CT abdomen and pelvis without contrast Clinical History: [Flank pain. ] Comparison: [ None available] Technique: Multiple axial CT images of the abdomen and pelvis were obtained without IV contrast. Sagittal and coronal reformatted images were obtained. FINDINGS: Lung bases: [There are a few small reticular and bandlike opacities in the lower lungs likely atelectasis or scarring. ] Liver: [ No intrahepatic biliary duct dilatation.] There is a 3.0 x 4.0 x 3.7 cm hypodense structure in the medial segment of the left lobe of the liver and about the falciform ligament. Differential includes but is not limited to focal fatty infiltration or mass. A liver mass MRI is recommended for further assessment. Gallbladder: Surgically absent. Common bile duct: [ Normal caliber.] [ No stones.] Spleen: [ Within normal limits.] Pancreas: [ No mass. No pancreatic fluid collection.] Adrenals: [ No masses.] Kidneys: [ No masses. No hydronephrosis.][ ] Lymph nodes: [ No adenopathy in the abdomen or pelvis.] Stomach, small bowel and colon: [ No bowel wall thickening or obstruction.] Large hiatal hernia. Moderate amount of stool. Peritoneum cavity: [ No mesenteric fat stranding or fluid.] Bladder: Thickening of the patel of the bladder. Differential includes incomplete bladder wall distention versus cystitis. Osseous structures: [ No acute fracture lesion.] [ Multilevel degenerative change in the visualized spine.] Abdominal aorta: [ No aneurysm.] Additional findings: Small fat-containing right inguinal hernia. IMPRESSION: 1. Thickening of the patel of the bladder. Differential includes incomplete bladder wall distention versus cystitis. 2. There is a 3.0 x 4.0 x 3.7 cm hypodense structure in the medial segment of the left lobe of the liver and about the falciform ligament. Differential includes but is not limited to focal fatty infiltration or mass. A liver mass MRI is recommended for further assessment. 3. Large hiatal hernia. 4. Small fat-containing right inguinal hernia. Reviewed, dictated and finalized at location Q. IMPRESSION: 1. Thickening of the patel of the bladder. Differential includes incomplete kevin dder wall distention versus cystitis. 2. There is a 3.0 x 4.0 x 3.7 cm hypodense structure in the medial segment of t he left lobe of the liver and about the falciform ligament. Differential includ es but is not limited to focal fatty infiltration or mass. A liver mass MRI is recommended for further assessment. 3. Large hiatal hernia. 4. Small fat-containing right inguinal hernia.
--- OUTSIDE RECORDS SUMMARY | 2025-08-30 10:30 | XMS_ITS | Encounter Summary ---
Author Organization [facility] Address [address] [place] [address] Care Team Providers Care Yarding And Folding Machine Operator Name Role Phone Unknown, Notinfile Primary Care Provider Unavail able Reason for Referral * Consultation (Urgent) - Authorized Specialty Diagnoses / Procedures Referred By Zoila cabrera Referred To Contact Family Medicine Diagnoses Urinary urgency Radha Wong NP [address] [place] [address] [address] [place] [address] Phone: tel: fax: [facility] Referral ID Status Reason Start Date Expiration Date Visits Requested Visits Authorized [id number] Authorized Specialty Services Required 09/29/2026 1 1 Question Answer Please select the performing region: [facility] [[id number]] # of visits: 1 Reason for Visit * Reason Comments Urinary Urgency Urinary urgency, lazaro n with urination, hematuria started in the last 24 hours. Dizziness for weeks but worsened since yesterday and has no balance at all per ptFell 3 weeks ago r/t dizziness and was seen at [place] and they did a head CT which pt reports was normal Encounter Details Date Type Department Care Team (Late st Contact Info) Description 08/30/2025 10:30 AM CDT Office Visit [facility] Convenient Care at [address] [address] Radha Wogn NP [address] [facility] [address] [place] [address] Acute cystitis with hematuria (Primary Dx); Dizziness Social History Tobacco Use Types Packs/Day Years Used Date Smoking Tobacco: Never Smokeless Tobacco: Never Alcohol Use Standard Drinks/Week Comments Yes 0 (1 standard drink = 0.6 oz pur e alcohol) AUDIT-C Answer Date Recorded Q1: How often do you have a drink containing alcohol? 4 or more times a week 06/12/2022 Q2: How many drinks containi ng alcohol do you have on a typical day when you are drinking? 1 or 2 Q3: How often do you have si x or more drinks on one occasion? Never 06/12/2022 Hunger Vital Sign Answer Date Recorded Within the past 12 months, y ou worried that your food would run out before you got the money to buy more. Never true 11/06/19 24 Within the past 12 months, t he food you bought just didn't last and you didn't have money to get more. Never true 11/06/2023 Personal Safety Answer Date Recorded Have you ever been in or are you currently in a harmful physical or emotional relationship or is someone making you feel afraid or unsafe? 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 Subjective/Objective Patient ID: Yolanda Forte is a 75 y.o. female. This patient has verbally consented to recording this visit in order to utilize AI technology in generating this note. Chief Complaint Urinary Urgency (Urinary urgency, pain with urination, hematuria started in the last 24 hours. /Dizziness for weeks but worsened since yesterday and has no balance at all per pt/Fell 3 weeks ago r/t dizziness and was seen at [place] and they did a head CT which pt reports was normal ) History of Present Illness Yolanda Forte is a 75 year old female who presents with dizziness and symptoms of a urinary tract infection. She experiences urgency, dysuria, and hematuria, with urgency beginning yesterday afternoon and hematuria starting 2 to 3 hours prior to the visit. Significant dizziness has been progressively worsening over the past three weeks, with a fall occurring three weeks ago. The severity increased signific antly about three to four days ago, requiring assistance to stand and the use of a wheelchair. Bending over exacerbates the dizziness. No visual changes, weakness, or issues with depth perception. She denies any new medications or changes in her current regimen. No chills, sweats, or fever-like symptoms beyond her usual fibromyalgia-related aches. Review of Systems All other systems reviewed and are negative. Physical Exam HEENT: Ears normal NEUROLOGICAL: Slight nystagmus Physical Exam Vitals and nursing note reviewed. Constitutional: General: She is awake. She is not in acute distress. Appearance: Normal appearance. She is not ill-appearing. HENT: Head: Normocephalic and atraumatic. Cardiovascular: Rate and Rhythm: Normal rate and regular rhythm. Heart sounds: Normal heart sounds. Pulmonary: Effort: Pulmonary effort is normal. Breath sounds: Normal breath sounds. Abdominal: General: Bowel sounds are normal. Palpations: Abdomen is soft. Tenderness: There is no abdominal tenderness. There is no right CVA tenderness, left CVA tenderness, guarding or rebound. Neurological: Mental Status: She is alert and oriented to person, place, and time. Cranial Nerves: No facial asymmetry. Sensory: Sensation is intact. Motor: No abnormal muscle tone or pronator drift. Coordination: Romberg sign positive. Coordination normal. Vwnvjj-Ohpc-Bvyuyd Test and Heel to Church Test normal. Rapid alternating movements normal. Gait: Gait is intact. Gait and tandem walk normal. Psychiatric: Mood and Affect: Mood normal. Behavior: Behavior normal. Behavior is cooperative. Vitals: 08/30/25 1031 BP: 142/88 Pulse: 87 Resp: 20 Temp: 36.6 ??C (97.8 ??F) SpO2: 100% No results found. Past Medical History: Diagnosis Date Depression Depression Fibromyalgia Fibrositis Fibromyalgia HX OTHER MEDICAL HX OTHER MEDICAL gall bladder Personal history of other drug therapy History of rabies vaccination - (Added by [facility] Conv) Right bundle branch block Current Outpatient Medications: DULoxetine DR (CYMBALTA) 60 mg capsule, Take 1 capsule (60 mg total) by mouth daily (Patient not taking: Reported on 08/30/2025), Disp: 30 capsule, Rfl: 0 losartan (COZAAR) 25 mg tablet, Take 1 tablet (25 mg total) by mouth daily (Patient not taking: Reported on 08/30/2025), Disp: 90 tablet, Rfl: 3 Allergies Allergen Reactions Penicillins Hives, Anaphylaxis and Urticaria Reaction: Hives, Beef Containing Products Diarrhea Social History Tobacco Use Smoking status: Never Smokeless tobacco: Never Substance and Sexual Activity Drug use: Yes Types: Marijuana, Alcohol Comment: edibles nightly for sleep; 12 pack of beer weekly Sexual activity: Defer Alcohol Use: Not At Risk (06/12/2022) AUDIT-C Frequency of Alcohol Consumption: 4 or more times a week Average Number of Drinks: 1 or 2 Frequency of Binge Drinking: Never Past Surgical History: Procedure Laterality Date APPENDECTOMY Appendectomy CHOLECYSTECTOMY Cholecystectomy HYSTERECTOMY TONSILLECTOMY Tonsillectomy Procedures Assessment/Plan 1. Acute cystitis with hematuria (Primary) - Urine culture Urine, clean voided; Future - POCT urinalysis dipstick - Ambulatory referral to Family Practice; Future 2. Dizziness Results Recent Results (from the past 4 hours) POCT urinalysis dipstick Collection Time: 08/30/25 10:48 AM Result Value Ref Range Color, Urine, POC Red Clarity, ur, POC Turbid (A) Clear Glucose, ur, POC Negative Negative Bilirubin, ur, POC Large (A) Negative Ketones, ur, POC 40. (A) Negative Specific [place], POC 1.020 1.003 - 1.030 Blood, ur, POC Large (A) Negative pH, ur, POC 8.5 (A) 5.0 - 8.0 Protein, ur, POC 300. (A) Negative Urobilinogen, urine, POC 2.0 (A) 0.2 - 1.0 mg/dL Nitrite, ur, POC Positive (A) Negative Leukocytes, ur, POC Large (A) Negative Lot Number [id number] Assessment & Plan Dizziness Progressive worsening with balance issues and fall. Acute exacerbation necessitating wheelchair use. Differential includes but not limited to intracranial causes, anemia, dehydration, or blood pressure issues. - Recommend ER evaluation for comprehensive workup including blood tests and imaging. - Arrange urgent referral to primary care provider for follow-up. - Patient's [id number] here with her today we will take her directly to [facility] ED Urinary tract infection Symptoms of urgency, dysuria, and hematuria. Decision to defer antibiotics until after hospital evaluation. - If not treated with antibiotics at the hospital, contact provider for antibiotic prescription. Disposition Treatment plan including expectations, follow up, and return precautions discussed with patient/parent, verbalizes understanding. Medication dosage, use, and potential adverse reactions discussed with patient/parent. Advised to follow up with PCP if symptoms do not resolve as expected or sooner if condition worsens. Signs/symptoms warranting ER evaluation reviewed. Patient and/or guardian was given an opportunity to ask questions, questions answered. Radha Wong NP This office note has been partially dictated using [employer] software, and as a result portions of the record may have been created with this software. Occasional wrong-word or '[id number]' substitutions may have occurred due to the inherent limitations of voice recognition software. Read the chartcarefully and recognize, using context, where substitutions have occurred. Cosigned by Koko Chavez MD at 08/30/2025 11:04 AM CDT documented in this encounter Plan of Treatment Scheduled Orders Name Type Priority Associated Diagnoses Orde r Schedule Urine culture Urine, clean voided Microbiology Routine Acute cystitis with hematuria Expected: 08/30/2025, Expires: 08/30/2026 Scheduled Procedures Name Priority Associated Diagnoses Date/Ti me COLONOSCOPY Open Access Screening for colon cancer COLONOSCOPY Screening for colon cancer Scheduled Referrals Name Type Priority Associated Diagnoses Order Schedule Ambulatory referral to Family Practice Outpatient Referral Urgent Acute cystitis with hematuria Expected: 08/31/2025 (Approximate), Expires: 08/30/2026 documented as of this encounter Procedures Procedure Name Priority Date/Time Associated Diagnosis Comments POCT URINALYSIS DIPSTICK Routine 08/30/2025 10:48 AM CDT Acute cystitis with hematuria documented in this encounter Results * (ABNORMAL) POCT urinalysis dipstick (08/30/2025 10:48 AM CDT) Color, Urine, POC Red Clarity, ur, POC Turbid(A) Clear Glucose, ur, POC Negative Negative Bilirubin, ur, POC Large(A) Negative Ketones, ur, POC 40.(A) Negative Specific [place], POC 1.020 1.003 - 1.030 Blood, ur, POC Large(A) Negative pH, ur, POC 8.5(A) 5.0 - 8.0 Protein, ur, POC 300.(A) Negative Urobilinogen, urine, POC 2.0(A) 0.2 - 1.0 mg/dL Nitrite, ur, POC Positive(A) Negative Leukocytes, ur, POC Large(A) Negative Lot Number [id number] Urine 08/30/2025 10:4 8 AM CDT us Radha Wong NP POINT OF CARE TEST ORDERABLES F inal Result documented in this encounter Visit Diagnoses Diagnosis Acute cystitis with hematuria- Primary Dizziness Dizziness and giddiness documented in this encounter Care Teams Yarding And Folding Machine Operator Relationship Specialty Start Date End Date Unknown, Notinfile PCP - General 08/30/25 documented as of this encounter
--- OUTSIDE RECORDS SUMMARY | 2025-08-30 10:30 | XMS_ITS | Encounter Summary ---
Author Organization [facility] Address [address] [place] [address] Care Team Providers Care Nonprofit Director Name Role Phone Unknown, Notinfile Primary Care Provider Unavail able Reason for Referral * Consultation (Urgent) - Authorized Specialty Diagnoses / Procedures Referred By Zoila cabrera Referred To Contact Family Medicine Diagnoses Urinary urgency Radha Wong NP [address] [place] [address] [address] [place] [address] Phone: tel: fax: [facility] Referral ID Status Reason Start Date Expiration Date Visits Requested Visits Authorized [id number] Authorized Specialty Services Required 09/29/2026 1 1 Question Answer Please select the performing region: [facility] [[id number]] # of visits: 1 Reason for Visit * Reason Comments Urinary Urgency Urinary urgency, lazaro n with urination, hematuria started in the last 24 hours. 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 Subjective/Objective Patient ID: Yolanda Foret is a 75 y.o. female. This patient [...] ago r/t dizziness and was seen at [place] and they did a head CT which [...] drift. Coordination: Romberg sign positive. Coordination normal. [id number]-Mdrahh Test and Heel to Church Test normal. [...] Ketones, ur, POC 40. (A) Negative Specific [place], POC 1.020 1.003 - 1.030 Blood, ur, POC Large (A) Negative pH, ur, POC 8.5 (A) 5.0 - 8.0 Protein, ur, POC 300. (A) Negative Urobilinogen, urine, POC 2.0 (A) 0.2 - 1.0 mg/dL Nitrite, ur, POC Positive (A) Negative Leukocytes, ur, POC Large (A) Negative Lot Number [id number] Assessment & Plan Dizziness Progressive worsening with balance issues and fall. Acute exacerbation necessitating wheelchair use. Differential includes but not limited to intracranial causes, anemia, dehydration, or blood pressure issues. - Recommend ER evaluation for comprehensive workup including blood tests and imaging. - Arrange urgent referral to primary care provider for follow-up. - Patient's [id number] here with her today we will take her directly to [facility] ED Urinary tract infection Symptoms of [...] office note has been partially dictated using [employer] software, and as a result portions of the record may have been created with this software. Occasional wrong-word or '[id number]' substitutions may have occurred due to the [...] Negative Ketones, ur, POC 40.(A) Negative Specific [place], POC 1.020 1.003 - 1.030 Blood, ur, POC Large(A) Negative pH, ur, POC 8.5(A) 5.0 - 8.0 Protein, ur, POC 300.(A) Negative Urobilinogen, urine, POC 2.0(A) 0.2 - 1.0 mg/dL Nitrite, ur, POC Positive(A) Negative Leukocytes, ur, POC Large(A) Negative Lot Number [id number] Urine 08/30/2025 10:4 8 AM CDT us Radha Wong NP POINT OF CARE TEST ORDERABLES F inal Result documented in this encounter Visit Diagnoses Diagnosis Acute cystitis with hematuria- Primary Dizziness Dizziness and giddiness documented in this encounter Care Teams Nonprofit Director Relationship Specialty Start Date End Date Unknown, Notinfile PCP - General 08/30/25 documented as of this encounter
--- OUTSIDE RECORDS SUMMARY | 2025-08-30 13:19 | XMS_ITS | Clinical Summary ---
Author Organization [facility] Address [address] [place] [address] Care Team Providers Care Payroll Accounting Manager Name Role Phone Unknown, Notinfile Primary Care Provider Unavail able Allergies Active Allergy Reactions Criticality Noted Date Comments Beef Containing Products Diarrhea Low Penicillins Hives,Anaphylaxis,Ur ticaria High 10/21/2019 Reaction: Hives, Medications losartan (COZAAR) 25 mg tablet Take 1 tablet (25 mg total) by mouth daily 90 tablet 3 4 Active Additional Information Patient not taking.Reported on 08/30/[address] (CYMBALTA) 60 mg capsule Take 1 capsule (60 mg total) by mouth daily 30 capsule 4 Active Additional Information Patient not taking.Reported on 08/30/2025 Active Problems Problem Noted Date Diagnosed Date NORMA (acute kidney injury) 11/06/2023 Overview (11/06/2023): Cr mildly increased to 1.20 from baseline of 1.0 during last visit. - recheck [facility] today Assessment & Plan (11/06/2023 9:39 AM FILLER OPERATOR): Cr mildly increased to 1.20 from baseline of 1.0 during last visit. - recheck BMP today Macrocytosis without anemia 10/29/2023 Overview (11/06/2023): Prior labs demonstrated MCV of 106.6 Hg 13.5. Repeat labs with B12 259, folate was hemolyzed. LDH 317, haptoglobin 150. - check homocysteine and methylmalonic acid - recheck folate Assessment & Plan (11/06/2023 9:38 AM FILLER OPERATOR): Prior labs demonstrated MCV of 106.6 Hg 13.5. Repeat labs with B12 259, folate was hemolyzed. LDH 317, haptoglobin 150. - check homocysteine and methylmalonic acid - recheck folate Syncope and collapse 10/29/2023 Overview (10/29/2023): Patient presents today with 2 episodes of syncope within the last 2 weeks. She denies any preceding symptoms. Given her lack of preceding symptoms we are most concerned for possible cardiac etiology. Denies any prior cardiac history. On chart review she had a new RBBB diagnosed in 2017. She had a TTE at that time that was largely unremarkable. EKG in office today appears unchanged from 2017 with continued RBBB, no NV prolongation and normal QTc. Given concern for possible cardiac syncope and the risk of repeated falls (head trauma, fracture) recommended patient be admitted for observation for telemetry monitoring and TTE. Would recommend Holter monitor following discharge. Patient agreeable to direct admission. [facility] called and approved admission, pending bed availability. Assessment & Plan (11/06/2023 9:38 AM FILLER OPERATOR): Today patient states she has not had further syncopal events since last week, but she continues to have issues with balance when she walks and feeling unstable. - call cardiac lab to inquire about adhesive strips for monitor - instructed patient to discuss nortriptyline dosage with psychiatry later today Assessment & Plan (10/30/2023 7:37 AM FILLER OPERATOR): - Unclear etiology - Unlikely vasovagal or orthostatic given no preceding symptoms; patient never has symptoms of orthostatic hypotension (she states that year ago she used to have this so knows what it feels like). Nothing to suggest seizure. - Continue telemetry - TTE pending - Anticipate discharge with 30-day event monitor - Although patient's high dose of nortriptyline can increase risk for instability and orthostatic hypotension, patient has been on a stable dose for 3 years with no issue so this is not the likely culprit. MDD (major depressive disorder) 10/29/2023 Assessment & Plan (10/30/2023 7:37 AM FILLER OPERATOR): - Continue Lexapro Fibromyalgia 10/29/2023 Assessment & Plan (10/30/2023 7:37 AM FILLER OPERATOR): - Continue nortriptyline Hot flashes 09/02/2022 Assessment & Plan (10/04/2022 5:08 PM FILLER OPERATOR): Occurs few times weekly for 10-15 min and will have profuse sweating. No other systemic symptoms. She had similar hot flashes decades ago when she was going into menopause but was doing fine until the last few months. Likely related to nortriptyline. Prefers to keep nortriptyline dose consistent and tolerate hot flashes. Assessment & Plan (09/02/2022 2:17 PM CDT): Occurs few times weekly for 10-15 min and will have profuse sweating. No other systemic symptoms. She had similar hot flashes decades ago when she was going into menopause but was doing fine until the last couple months. - High suspicion this is related to side effects of her medicines, specifically her notriptyline which was increased during the time period of her symptoms. Seems less likely a vasomotor symptom of menopause given her years without symptoms. Will [facility] psychiatry Benign paroxysmal positional vertigo of right ea r 07/04/2022 Assessment & Plan (07/04/2022 3:54 PM CDT): [place]-Hall[place] reproduced symptoms with nystagmus. Performed Mihir. Educated on performing this maneuver at home - Will also provide meclizine prn Hypertension, essential 07/04/2022 Overview (11/06/2023): Recent elevated blood pressures in the ED up to 190s. BP today 152/66. - start losartan 25mg daily - instructed patient to bring BP cuff to next appointment - BP check in 1 month Assessment & Plan (11/06/2023 9:40 AM FILLER OPERATOR): Recent elevated blood pressures in the ED up to 190s. BP today 152/66. - start losartan 25mg daily - instructed patient to bring BP cuff to next appointment - BP check in 1 month Assessment & Plan (10/04/2022 5:02 PM FILLER OPERATOR): Has not started amlodipine, and having home BP measurements above goal. Strongly recommended starting today and maintaining a daily log of blood pressures. She expressed agreement with this plan. Recommended bringing BP log and home cuff to next follow up appt. Assessment & Plan (09/02/2022 2:13 PM CDT): Has not started amlodipine. Discussed starting this today and will re-assess blood pressure at future visits and up-titrate as needed. Assessment & Plan (07/04/2022 3:55 PM CDT): Elevated BP at last several visits. She is amenable to starting amlodipine 5 mg daily today Rash and nonspecific skin eruption 07/04/2022 Assessment & Plan (10/04/2022 5:06 PM FILLER OPERATOR): Persistent for several months. Did not respond to antifungal therapy. Autoimmune labs, CRP unremarkable. Dermatology referral was sent at a prior appointment. Continuing to cause discomfort. - She has the phone number for dermatology, encouraged calling to schedule an appt for further evaluation Assessment & Plan (09/02/2022 2:15 PM CDT): Non-pruritic and blanches. Autoimmune labs, crp unremarkable. Did not respond to po fluconazole and did not try topical miconazole. Unclear what this is but appears stable from previous visit. It does not appear atopic to me - she has phone number for derm to schedule appt Assessment & Plan (07/04/2022 3:57 PM CDT): Progressive over the last 2-3 months. It is blanching, non-pruritic. No recent med changes. Did not respond to anti-fungal therapy. Does not appear consistent with a fungal infection or atopic etiology. It almost appears purpuric/vasculitic, though does appear to tulio on exam. She does not appear to have systemic symptoms. - Will check labs to evaluate for systemic inflammation or an underlying autoimmune process or coagulation disorder - Refer to dermatology for further evaluation, consideration of skin biopsy Neuropathy 06/14/2022 Assessment & Plan (06/14/2022 3:43 PM CDT): Chronic decreased sensation to the distal toes s/p neurology evaluation. Evidence of decreased perfusion to the feet on exam, concerning for chronic PAD. No history of smoking, no significant claudication. Regarding potential causes for neuropathy, no history of DM, no history of heavy alcohol use, normal TSH. - Neuropathy work up: RPR, B12 - If negative, consider referral for ABIs. [facility] maintenance 06/14/2022 Assessment & Plan (11/06/2023 9:41 AM FILLER OPERATOR): Last colonoscopy 2016 w/ polyp and diverticulosis, repeat in 5 years recommended. No mammogram on file. - ordered colonoscopy and mammo Assessment & Plan (10/04/2022 5:08 PM FILLER OPERATOR): Strongly encouraged to call to schedule mammogram and colonoscopy. Assessment & Plan (06/14/2022 3:44 PM CDT): - A1c (for pts with BP >135/80): 5.1 04/14/22 - Lipids (women >45 or high risk): total cholesterol 295, triglycerides 194, LDL 196 04/14/22 - DEXA (women >65 or high risk): 06/15/15 Cancer - Colonoscopy (age 45-75): Due 09/29/21. Referral sent at last appointment - Mammogram (women age 50-74): Scheduled for 07/17/22 - Pap (women 21-65): N/A - Lung (50-80 with >20 pk-yr hx, and smoking in past 15yrs): N/A Infectious Disease - HIV (age 15-65): Nonreactive 04/14/22 - HBV (if at high risk): N/A - HCV (18+ yo): Nonreactive 04/14/22 - Gonorrhea/Chlamydia (women <24 or increased risk): N/A - Syphilis (if increased risk): N/A Immunizations - COVID-19: - Influenza (annually): Due fall 2021 - Td/Tdap (q10 years): Due 11/28/24 - PPSV23 (age >65, immunocomp, DM, CKD, heart dz, lung dz, liver dz, EtOH, asplenia): - PCV13 (age >65, immunocomp, CKD, asplenia): 07/30/17 - Shingles RZV (age >60): Recommended, will consider getting at outpatient pharmacy Chronic insomnia 06/05/2022 BMI 31.0-31.9,adult 06/05/2022 Assessment & Plan (09/02/2022 2:13 PM CDT): Continue lifestyle modifications. Assessment & Plan (07/04/2022 3:53 PM CDT): Discussed lifestyle modifications. She is working on diet and exercise. Mixed hyperlipidemia 04/15/2022 Overview (10/29/2023): Most recent lipid panel: chol 216, LDL 212, TG 125 09/01/22 Current regimen: declined statin previously ASCVD risk: 18.4% - repeat lipid panel Assessment & Plan (11/06/2023 9:41 AM FILLER OPERATOR): 10/29/23 lipid panel chol 233, HDL 74, LDL 132. - patient deferring statin today, discuss at next appt Assessment & Plan (07/04/2022 3:52 PM CDT): Would recommend statin therapy. She is hesitant and would like to continue focus on lifestyle modifications. Will recheck lipid panel at next visit. Likely will need statin regardless. Assessment & Plan (04/15/2022 5:48 PM CDT): LDL 196. Patient was ambivalent about starting a statin. She prefers to trial lifestyle modifications and recheck lipid panel and re-assess need for medication. Discussed that likely the recommendation to initiate a statin would not change given her LDL level. Fibromyalgia 12/25/2015 Assessment & Plan (09/02/2022 2:14 PM CDT): Sees psych Major depressive disorder, recurrent, in remissi on 01/04/2015 Overview (10/29/2023): Patient on nortriptyline 100 and lexapro 20. Follows with psychiatry. Given her recent syncopal events and her history of RBBB would recommend coming off the nortriptyline as TCAs can cause cardiac conduction abnormalities and orthostatic hypotension. - Will reach out to patient's psychiatrist Assessment & Plan (09/02/2022 2:13 PM CDT): Sees psych Assessment & Plan (07/04/2022 3:52 PM CDT): Continue psych f/u. On nortripyline, lexapro Assessment & Plan (04/15/2022 1:50 PM CDT): Continue f/u with psych Assessment & Plan (12/05/2020 4:58 PM FILLER OPERATOR): Tee Forte is a 70 y.o. female , domiciled, disabled female with prior psychiatric history of major depressive disorder, fibromyalgia and hoarding disorder. Patient has a history of episodic major depressive disorder characterized by persistent low mood, changes in appetite and sleep, crying spells, anhedonia, amotivation, and passive suicidal ideation. No history of moy, psychosis, or substance use. patient also has history of difficulty parting with objects regardless of value leading to accumulation of clutter in the home resulting in distress and consistent with hoarding disorder. Assessment & Plan (04/08/2019 2:17 PM CDT): This is a 68 year old , domiciled, disabled female with prior psychiatric history of major depressive disorder and hoarding disorder presenting for followup. Major depressive disorder is diagnosed based on >2 weeks of low mood, changes in appetite and sleep, crying spells, anhedonia, ammotivation, and passive suicidal ideation with no confounding psychosis, moy, or substance use. Diagnosis of hoarding disorder is based on difficulty parting with objects regardless of value leading to accumulation of clutter in the home. Treatment progress: Patient has largely been stable on current regimen of Nortriptyline 75mg qHs, Lexapro 10mg daily, and Trazodone 150mg qHs with some situational worsening of her depressive symptoms that have since improved. Plan: 1. Psychopharmacology: -Continue nortriptyline 75mg qHs, Lexapro 10mg daily, Trazodone 150mg qHs -The R/B/SE/A have been discussed and consented to. 2. Psychotherapy: Future psychotherapy goals include targeting hoarding. 3. Medical: Has fibromyalgia, follows regularly with PCP 4. Addiction: Occasional marijuana use, patient is pre-contemplative about cessation. 5. Psychosocial: Domiciled. Disabled. 6. Dispo: -At the present time, patient poses low risk of self harm based on risk factors of history of depression, . Protective factors include future planning, no suicidal ideation, lives with son, has children, disability income, domiciled. The patient otherwise remains appropriate for continued outpatient management as she has no suicidal ideation and shows future planning. -The patient has my business card and has been instructed to call the clinic in the event of any urgent issues. If there is an emergency, the patient has been instructed to go to the nearest Emergency Room or to dial 9-1-1. 7: Follow-up: RTC in 2 months. Assessment & Plan (01/17/2019 2:52 PM CDT): This is a 68 year old , domiciled, disabled female with prior psychiatric history of major depressive disorder and hoarding disorder presenting for followup. Major depressive disorder is diagnosed based on >2 weeks of low mood, changes in appetite and sleep, crying spells, anhedonia, ammotivation, and passive suicidal ideation with no confounding psychosis, moy, or substance use. Diagnosis of hoarding disorder is based on difficulty parting with objects regardless of value leading to accumulation of clutter in the home. Treatment progress: Patient has largely been stable on current regimen of Nortriptyline 75mg qHs, Lexapro 10mg daily, and Trazodone 150mg qHs with some situational worsening of her depressive symptoms that have now improved. Plan: 1. Psychopharmacology: -Continue nortriptyline 75mg qHs, Lexapro 10mg daily, Trazodone 150mg qHs -The R/B/SE/A have been discussed and consented to. 2. Psychotherapy: Future psychotherapy goals include targeting hoarding. Supportive psychotherapy provided regarding living in [facility]. 3. Medical: Has fibromyalgia, follows regularly with PCP 4. Addiction: Occasional marijuana use, patient is pre-contemplative about cessation. 5. Psychosocial: Domiciled. Disabled. 6. Dispo: -At the present time, patient poses low risk of self harm based on risk factors of history of depression, . Protective factors include future planning, no suicidal ideation, lives with son, has children, disability income, domiciled. The patient otherwise remains appropriate for continued outpatient management as she has no suicidal ideation and shows future planning. -The patient has my business card and has been instructed to call the clinic in the event of any urgent issues. If there is an emergency, the patient has been instructed to go to the nearest Emergency Room or to dial 9-1-1. 7: Follow-up: RTC in 1-2 months. Assessment & Plan (11/17/2018 6:55 PM FILLER OPERATOR): This is a 68 year old , domiciled, disabled female with prior psychiatric history of major depressive disorder and hoarding disorder presenting for followup. Major depressive disorder is diagnosed based on >2 weeks of low mood, changes in appetite and sleep, crying spells, anhedonia, ammotivation, and passive suicidal ideation with no confounding psychosis, moy, or substance use. Diagnosis of hoarding disorder is based on difficulty parting with objects regardless of value leading to accumulation of clutter in the home. Treatment progress: Patient has some residual depressive symptoms on current regimen but suspects these may be situational and does not wish to make medication changes at this time. Will reassess at next appointment after return from [place]. 1. Psychopharmacology: -Continue nortriptyline 75mg qHs, Lexapro 10mg daily, Trazodone 150mg qHs -The R/B/SE/A have been discussed and consented to. 2. Psychotherapy: Future psychotherapy goals include targeting hoarding. Discussed started formal therapy with outside psychologist. 3. Medical: Has fibromyalgia, follows regularly with PCP 4. Addiction: Occasional marijuana use, patient is pre-contemplative about cessation. 5. Psychosocial: No acute issues 6. Dispo: -At the present time, patient poses low risk of self harm based on risk factors of history of depression, . Protective factors include future planning, no suicidal ideation, lives with son, has children, disability income, domiciled. The patient otherwise remains appropriate for continued outpatient management as she has no suicidal ideation and shows future planning. -The patient has my business card and has been instructed to call the clinic in the event of any urgent issues. If there is an emergency, the patient has been instructed to go to the nearest Emergency Room or to dial . 7: Follow-up: RTC in 1 month. Assessment & Plan (08/30/2018 1:49 PM CDT): This is a 68 year old , domiciled, disabled female with prior psychiatric history of major depressive disorder and hoarding disorder presenting for followup. Major depressive disorder is diagnosed based on >2 weeks of low mood, changes in appetite and sleep, crying spells, anhedonia, ammotivation, and passive suicidal ideation with no confounding psychosis, moy, or substance use. Diagnosis of hoarding disorder is based on difficulty parting with objects regardless of value leading to accumulation of clutter in the home. 1. Psychopharmacology: -Continue nortriptyline 75mg qHs, Lexapro 10mg daily, Trazodone 150mg qHs -The R/B/SE/A have been discussed and consented to. 2. Psychotherapy: Future psychotherapy goals include targeting hoarding. 3. Medical: No acute issues 4. Addiction: No acute issues 5. Psychosocial: No acute issues 6. Dispo: -At the present time, patient poses low risk of self harm based on risk factors of history of depression, . Protective factors include future planning, no suicidal ideation, lives with son, has children, disability income, domiciled. The patient otherwise remains appropriate for continued outpatient management. -The patient has my business card and has been instructed to call the clinic in the event of any urgent issues. If there is an emergency, the patient has been instructed to go to the nearest Emergency Room or to dial . 7: Follow-up: RTC in 1 month. Assessment & Plan (08/03/2018 9:49 AM CDT): This is a 68 year old , domiciled, disabled female with prior psychiatric history of major depressive disorder and hoarding disorder. Major depressive disorder is diagnosed based on >2 weeks of low mood, changes in appetite and sleep, crying spells, anhedonia, ammotivation, and passive suicidal ideation with no confounding psychosis, moy, or substance use. Diagnosis of hoarding disorder is based on difficulty parting with objects regardless of value leading to accumulation of clutter in the home. 1. Psychopharmacology: -Continue nortriptyline 75mg qHs, Lexapro 10mg daily, Trazodone 150mg qHs -The R/B/SE/A have been discussed and consented to. 2. Psychotherapy: Future psychotherapy goals include targeting hoarding. 3. Medical: No acute issues 4. Addiction: No acute issues 5. Psychosocial: No acute issues 6. Dispo: -At the present time, patient poses low risk of self harm based on risk factors of history of depression, . Protective factors include future planning, no suicidal ideation, lives with son, has children, disability income, domiciled. The patient otherwise remains appropriate for continued outpatient management. -The patient has my business card and has been instructed to call the clinic in the event of any urgent issues. If there is an emergency, the patient has been instructed to go to the nearest Emergency Room or to dial . 7: Follow-up: RTC in 1 month. Resolved Problems Problem Noted Date Diagnosed Date Resolved Date Candidal intertrigo 06/14/2022 07/04/20 Assessment & Plan (06/14/2022 3:47 PM CDT): Extensive rash to the groin and proximal legs consistent with candidal intertrigo. Recent negative HIV, no evidence of immunosuppression. - Fluconazole 150 x1 now, and additional dose in one week - Miconazole 2% powder Hoarding disorder 04/21/2018 07/04/2022 Encounters Date Type Department Care Team Description 08/30/2025 10:30 AM CDT Office Visit [facility] at [address] [id number] Radha Wong NP Acute cystitis with hematuria (Primary Dx); Dizziness from Last 3 Months Surgical History Surgery Date Site/Laterality Comments CHOLECYSTECTOMY Cholecystectomy APPENDECTOMY Appendectomy TONSILLECTOMY Tonsillectomy HYSTERECTOMY Medical History Medical History Date Comments Fibrositis Fibromyalgia Hx Other Medical Depression Depression Hx Other Medical gall bladder Personal history of other drug therapy History of rabies vaccination - (Added by TW Conv) Fibromyalgia Right bundle branch block Family History Medical History Relation Name Comments Lung cancer Father Cancer, lung; Depression Mother Family history of depression - (Added by TW Conv) Lung cancer Mother Cancer, lung; Relation Name Status Comments Father Mother Social History Tobacco Use Types Packs/Day Years [...] on file Legal Sex Female 3:45 AM FILLER OPERATOR Gender Identity Not on file Sexual Orientation Not on file Obstetrics History Last Filed Vital Signs Vital Sign Reading Time Taken Comments Blood Pressure 142/88 08/30/2025 10:31 AM CDT Pulse 87 08/30/2025 10:31 AM CDT Temperature 36.6 C (97.8 F) 08/30/2025 10:31 AM CDT Respiratory Rate 20 08/30/2025 10:31 AM CDT Oxygen Saturation 100% 08/30/2025 10:31 AM CDT Inhaled Oxygen Concentration - - Weight 81.7 kg (180 lb 1.6 oz) 05/20/2024 3:10 P M CDT Height 165.1 cm (5' 5) 05/06/2024 8:54 AM CDT Body Mass Index 29.97 05/06/2024 8:54 AM CDT Plan of Treatment Scheduled Procedures Name Priority Associated Diagnoses Date/Ti me COLONOSCOPY Open Access Screening for colon cancer COLONOSCOPY Screening for colon cancer Health Maintenance Due Date Last Done Comments Depression Screening 1950 Zoster Vaccine (1 of 2) 2001 Well Visit 65+ 2016 Osteoporosis Screening-Bone Density Scan 06/15/2017 06/15/2015 Breast Cancer Screening-Mammogram 10/16/2017 016 Pneumococcal vaccine 65+ (2 of 2 - PCV20 or PCV21) 07/30/2018 07/30/2017 Fall Risk Assessment 10/30/2024 10/30/2023, 10/29/20 23 Influenza Vaccine (#1) 2025 12/25/2015 Colon Cancer Screening-Colonoscopy 09/29/20262015 DTaP/Tdap/Td Vaccine (2 - Td or Tdap) 08/10/203507/2025, 11/28/2014 Colon Cancer Screening-CT Colonography Discontinued Colon Cancer Screening-DNA Stool Discontinued 09/29/20 16 Colon Cancer Screening-FIT Discontinued 09/29/2016 Colon Cancer Screening-Sigmoidoscopy Discontinued 09/03 Hepatitis C Screening Completed 04/14/2022 Hepatitis B Screening Completed 10/29/2023 Procedures Procedure Name Priority Date/Time Associated Diagnosis Comments POCT URINALYSIS DIPSTICK Routine 08/30/2025 10:48 AM CDT Acute cystitis with hematuria HEPATITIS C ANTIBODY Routine 04/14/2022 4:10 PM CDT Need for hepatitis C screening test SCREENING MAMMOGRAM W ANT Routine 10/16/2016 3:16 PM FILLER OPERATOR COLONOSCOPY REPORT 09/29/2016 DEXA AXIAL SKELETON BONE DENSITY 1 OR MORE SITES Routine 06/15/2015 1:29 PM CDT from Last 3 Months or Most Recently Relevant to Health Maintenance Results * (ABNORMAL) POCT urinalysis dipstick (08/30/2025 10:48 AM CDT) Color, Urine, POC Red Clarity, ur, POC Turbid(A) Clear Glucose, ur, POC Negative Negative Bilirubin, ur, POC Large(A) Negative Ketones, ur, POC 40.(A) Negative Specific Topmost, POC 1.020 1.003 - 1.030 Blood, ur, POC Large(A) Negative pH, ur, POC 8.5(A) 5.0 - 8.0 Protein, ur, POC 300.(A) Negative Urobilinogen, urine, POC 2.0(A) 0.2 - 1.0 mg/dL Nitrite, ur, POC Positive(A) Negative Leukocytes, ur, POC Large(A) Negative Lot Number [id number] Urine 08/30/2025 10:4 8 AM CDT us Radha Wong NP POINT OF CARE TEST ORDERABLES F inal Result * Hepatitis C antibody (04/14/2022 4:10 PM CDT) Hep C Ab Nonreactive Nonreactive [facility] Comment:Antibodies to HCV no t detected. Does NOT exclude the possibility of recent exposure to HCV. Blood 04/14/2022 4:10 PM CDT 04/14/2022 4:41 PM CDT us Robin Carrillo MD LAB MICROBIOLOGY - GENERAL O RDERABLES Edited Result - Final [facility] Department [place] [address] * Screening Mammogram W Ant (10/16/2016 3:16 PM FILLER OPERATOR) Anatomical Region Laterality Modality Breast N/A Mammography 10/16/2016 3:16 PM FILLER OPERATOR Narrative 10/23/2016 9:50 AM FILLER OPERATOR CARLOS EDUARDO FERRIS M.D. FINAL REPORT ACC# Date Time Exam [id number] Oct 16, 2016 15:16:00 [facility] [id number] Bilateral screen w ant Technologist(s): Joanna Cuadra; ; EXAMINATION: Mammogram Technique: Bilateral Full-Field Digital Screening Mammogram and Digital Breast Tomosynthesis were performed. Views obtained: bilateral craniocaudal and bilateral mediolateral oblique. Computer Aided Detection of the 2D images was performed with Lob.3 version 9.3. Mammogram Findings: There are scattered areas of fibroglandular density. There is asymmetry in the subareolar area of the left breast. There is no suspicious abnormality in the right breast. IMPRESSION: Asymmetry in the left breast requires additional evaluation. Additional views are recommended. OVERALL FINAL ASSESSMENT: BI-RADS CATEGORY 0: Incomplete: Need additional imaging evaluation. Requested By: Dictated By: CARLOS EDUARDO FERRIS M.D. on Oct 23 2016 9:50A This document has been electronically signed by: CARLOS EDUARDO FERRIS M.D. on Oct 23 2016 9:50A [id number] Procedure Note Provider, MD Dylan - 03/09/2017 CARLOS EDUARDO FERRIS M.D. FINAL REPORT ACC# Date Time Exam [id number] Oct 16, 2016 15:16:00 [facility] [id number] Bilateral screen w ant Technologist(s): Joanna Cuadra; ; EXAMINATION: Mammogram Technique: Bilateral Full-Field Digital Screening Mammogram and Digital Breast Tomosynthesis were performed. Views obtained: bilateral craniocaudaland bilateral mediolateral oblique. Computer Aided Detection of the 2Dimages was performed with ValenTx 1.3 version 9.3. Mammogram Findings: There are scattered areas of fibroglandular density. There is asymmetry in the subareolar area of the left breast. There is no suspicious abnormality in the right breast. IMPRESSION: Asymmetry in the left breast requires additional evaluation. Additional views are recommended. OVERALL FINAL ASSESSMENT: BI-RADS CATEGORY 0: Incomplete: Need additional imaging evaluation. Requested By: Dictated By: CARLOS EDUARDO FERRIS M.D. on Oct 23 2016 9:50A This document has been electronically signed by: CARLOS EDUARDO FERRIS M.D. on Oct 23 2016 9:50A [id number] us Historical Provider MD BOWDEN MAMMO PROCEDURES Deonna l Result * COLONOSCOPY REPORT (09/29/2016) Anatomical Region Laterality Modality Other Narrative 09/29/2016 Ordered by an unspecified provider. us Historical Provider GI PROCEDURE ORDERABLES F inal Result * Dexa Axial Skeleton Bone Density 1 or 2 Site (06/15/2015 1:29 PM CDT) Anatomical Region Laterality Modality Body N/A Radiographic Sheri ging 06/15/2015 1:29 PM CDT Narrative 06/15/2015 5:54 PM CDT MAMIE PAGE M.D. ROSARIO CALERO M.D. FINAL REPORT The radiology attending physician has personally reviewed this study, and has reviewed and/or edited this written report and agrees with it. ACC# Date Time Exam [id number] Jun 15, 2015 13:29:00 [id number] DEXA Axial 1 or 2 sites EXAMINATION: BONE DENSITOMETRY OF THE SPINE AND HIP DATE OF STUDY: 06/15/2015 HISTORY: 64-year-old postmenopausal woman with hysterectomy and bilateral oophorectomy at age 39. She took hormone replacement therapy until 10 years ago. She is being treated with vitamin D. She has taken heparin in the past. Evaluate bone mineral density. Additional risk factors for fracture: increased risk of secondary osteoporosis. FINDINGS (SPINE): The bone mineral density of L1-L4 was assessed by dual-energy x-ray absorptiometry. The average bone mineral density within this region is 0.994 gm/sq-cm. This is 1.2 standard deviations above the mean of the average bone mineral density for age- and gender-matched subjects (the Z-score). It is 0.5 standard deviations below the mean peak bone mineral density in young adults (the T-score). FINDINGS (FEMORAL NECK): The bone mineral density of the left femoral neck was assessed by dual-energy x-ray absorptiometry. The average bone mineral density within the femoral neck region is 0.676 gm/sq-cm. This is 0.1 standard deviations below the mean of the average bone mineral density for age- and gender-matched subjects (the Z-score). It is 1.6 standard deviations below the mean peak bone mineral density in young adults (the T-score). FINDINGS (TOTAL HIP): The bone mineral density of the left hip was assessed by dual-energy x-ray absorptiometry. The average bone mineral density within the total hip region is 0.810 gm/sq-cm. This is 0.1 standard deviations above the mean of the average bone mineral density for age- and gender-matched subjects (the Z-score). It is 1.1 standard deviations below the mean peak bone mineral density in young adults (the T-score). SUMMARY OF CURRENT RESULTS: Region BMD T-score Z-score AP Spine (L1-L4) 0.994 -0.5 1.2 Femoral Neck (Left) 0.676 -1.6 -0.1 Total Hip (Left) 0.810 -1.1 0.1 IMPRESSION: - 1. The bone mineral density of the lumbar spine is normal. 2. The bone mineral density of the left femoral neck is mildly decreased. 3. The bone mineral density of the left total hip is mildly decreased. 4. Overall, the above findings are diagnostic of low bone mass (osteopenia) by WHO criteria. 5. Based on the FRAX fracture risk model, the 10-year probability for major osteoporotic fracture is 8.4% and that for hip fracture is 0.8%. This 10-year fracture risk estimate was calculated using the risk factors noted in the history above, along with the femoral neck bone density. FRAX is intended to help guide treatment decisions in men over age 50 and postmenopausal women with low bone mass (osteopenia). The National Osteoporosis Foundation (NOF) recommends that FDA-approved medical therapies be considered in postmenopausal women and men age 50 years and older with low bone mass whose 10-year fracture probability by FRAX is >= 20% for major osteoporotic fracture or >= 3% for hip fracture. However, all treatment decisions require clinical judgment and consideration of individual patient factors, including patient preferences, comorbidities, previous drug use, risk factors not captured in the FRAX model (e.g., frailty, falls, vitamin D deficiency, increased bone turnover, interval significant decline in bone density) and possible under- or overestimation of fracture risk by FRAX. General comments regarding interpretation of bone density measurements: a) In children, premenopausal woman and males under age 50 not at increased risk for fractures only Z-scores, not T-scores are used to indicate risk. A Z-score above -2.0 is defined as within the expected range for age and Z-score at or less than -2.0 is below the expected range for age. A Z-score below the expected range for age in a patient with recent fractures and/or chronic corticosteroid treatment is consistent with a diagnosis of osteoporosis. b) In post menopausal women and males over 50, comparison of the measured bone mineral density with the average value in young normal subjects (the T-score) has been found to be useful in assessing fracture risk. Fracture risk approximately doubles for each 1.0 standard deviation (SD) in individual's hip or spine bone mineral density is below the average value of young normal subjects. The World Health Organization (WHO) has defined T-scores of -1.0 to -2.5 as diagnostic of low bone mass (OSTEOPENIA), and T-scores of -2.5 or lower to be diagnostic of OSTEOPOROSIS, based on the site of lowest bone density. Note that there will be a change in reporting format and reference databases as patients move from the younger population (group a) to the older population (group b) The National Osteoporosis Foundation (www.nof.org) recommends adequate intake of calcium and vitamin D and regular weight-bearing exercise in all patients. They recommend pharmacologic treatment in postmenopausal women and men age 50 and older presenting with any of the followin) Osteoporosis, after appropriate evaluation to exclude secondary causes. 2) A hip or vertebral (clinical or radiographic) fracture, regardless of the bone density. 3) Low bone mass (Osteopenia) and one or more of: other prior fractures, secondary causes associated with high risk of fracture (such as glucocorticoid use or total immobilization), or computed high risk of fracture (10-yr probability of hip fracture >= 3% or a 10-yr probability of any major osteoporosis-related fracture >= 20% based on the [place].-adapted WHO algorithm), available at http://www.shef.ac.uk/FRAX). Requested By: Dictated By: ROSARIO CALERO M.D. on Jun 15 2015 1:29P This document has been electronically signed by: MAMIE PAGE M.D. on Jun 15 2015 5:54P Procedure Note Provider, MD Dylan - 03/02/2017 Migdalia RUIZ M.D. FINAL REPORT The radiology attending physician has personally reviewed this study, and has reviewed and/or edited this written report and agrees with it. ACC# Date Time Exam [id number] Jun 15, 2015 13:29:00 [id number] DEXA Axial 1 or 2 sites EXAMINATION: BONE DENSITOMETRY OF THE SPINE AND HIP DATE OF STUDY: 06/15/2015 HISTORY: 64-year-old postmenopausal woman with hysterectomy and bilateral oophorectomy at age 39. She took hormone replacement therapy until 10 years ago. She is being treated with vitamin D. She has taken heparin in the past. Evaluate bone mineral density. Additional risk factors for fracture: increased risk of secondary osteoporosis. FINDINGS (SPINE): The bone mineral density of L1-L4 was assessed by dual-energy x-ray absorptiometry. The average bone mineral density within this region is 0.994 gm/sq-cm. This is 1.2 standard deviations above the mean of the average bone mineral density for age- and gender-matched subjects (the Z-score). It is 0.5 standard deviations below the mean peak bone mineral density in young adults (the T-score). FINDINGS (FEMORAL NECK): The bone mineral density of the left femoral neck was assessed by dual-energy x-ray absorptiometry. The average bone mineral density within the femoral neck region is 0.676 gm/sq-cm. This is 0.1 standard deviations below the mean of the average bone mineral density for age- and gender-matched subjects (the Z-score). It is 1.6 standard deviations below the mean peak bone mineral density in young adults (the T-score). FINDINGS (TOTAL HIP): The bone mineral density of the left hip was assessed by dual-energy x-ray absorptiometry. The average bone mineral density within the total hip region is 0.810 gm/sq-cm. This is 0.1 standard deviations above the mean of the average bone mineral density for age- and gender-matched subjects (the Z-score). It is 1.1 standard deviations below the mean peak bone mineral density in young adults (the T-score). SUMMARY OF CURRENT RESULTS: Region BMD T-score Z-score AP Spine (L1-L4) 0.994 -0.5 1.2 Femoral Neck (Left) 0.676 -1.6 -0.1 Total Hip (Left) 0.810 -1.1 0.1 IMPRESSION: - 1. The bone mineral density of the lumbar spine is normal. 2. The bone mineral density of the left femoral neck is mildly decreased. 3. The bone mineral density of the left total hip is mildly decreased. 4. Overall, the above findings are diagnostic of low bone mass (osteopenia) by WHO criteria. 5. Based on the FRAX fracture risk model, the 10-year probability for major osteoporotic fracture is 8.4% and that for hip fracture is 0.8%. This 10-year fracture risk estimate was calculated using the risk factors noted in the history above, along with the femoral neck bone density. FRAX is intended to help guide treatment decisions in men over age 50 and postmenopausal women with low bone mass (osteopenia). The National Osteoporosis Foundation (NOF) recommends that FDA-approved medical therapies be considered in postmenopausal women and men age 50 years and older with low bone mass whose 10-year fracture probability by FRAX is >= 20% for major osteoporotic fracture or >= 3% for hipfracture. However, all treatment decisions require clinical judgment and consideration of individual patient factors, including patient preferences, comorbidities, previous drug use, risk factors not captured in the FRAX model (e.g., frailty, falls, vitamin D deficiency, increased bone turnover, interval significant decline in bone density) and possible under- or overestimation of fracture risk by FRAX. General comments regarding interpretation of bone density measurements: a) In children, premenopausal woman and males under age 50 not at increased risk for fractures only Z-scores, not T-scores are used to indicate risk. A Z-score above -2.0 is defined as within the expected range for age and Z-score at or less than -2.0 is below the expected range for age. A Z-score below the expected range for age in a patient with recent fractures and/or chronic corticosteroid treatment is consistent with a diagnosis of osteoporosis. b) In post menopausal women and males over 50, comparison of the measured bone mineral density with the average value in young normal subjects (the T-score) has been found to be useful in assessing fracture risk. Fracture risk approximately doubles for each 1.0 standard deviation (SD) in individual's hip or spine bone mineral density is below the average value of young normal subjects. The World Health Organization (WHO) has defined T-scores of -1.0 to -2.5 as diagnostic of low bone mass (OSTEOPENIA), and T-scores of -2.5 or lower to be diagnostic of OSTEOPOROSIS, based on the site of lowest bone density. Note that there will be a change in reporting format and reference databases as patients move from the younger population (group a) to the older population (group b) The National Osteoporosis Foundation (www.nof.org) recommends adequate intake of calcium and vitamin D and regular weight-bearing exercise in all patients. They recommend pharmacologic treatment in postmenopausal women and men age 50 and older presenting with any of the followin) Osteoporosis, after appropriate evaluation to exclude secondary causes. 2) A hip or vertebral (clinical or radiographic) fracture,regardless of the bone density. 3) Low bone mass (Osteopenia) and one or more of: other prior fractures, secondary causes associated with high risk of fracture (such as glucocorticoid use or total immobilization), or computed high risk of fracture (10-yr probability of hip fracture >= 3% or a 10-yr probability of any major osteoporosis-related fracture >= 20% based on the [place].-adapted WHO algorithm), available at http://www.shef.ac.uk/FRAX). Requested By: Dictated By: ROSARIO CALERO M.D. on Jun 15 2015 1:29P This document has been electronically signed by: MAMIE PAGE M.D. on Jun 15 2015 5:54P Historical Provider MD BOWDEN DXA PROCEDURES Final Result from Last 3 Months or Most Recently Relevant to Health Maintenance Insurance MEDICARE [facility] MEDICARE [facility] Advance Directives For more information, please contact: [phone] * Full Code (Latest Code Status on File) Date Activated Date Inactivated Comments 10/29/2023 3:32 PM 10/30/2023 5:46 PM Care Teams Payroll Accounting Manager Relationship Specialty Start Date End Date Unknown, Notinfile PCP - General 08/30/25
--- OUTSIDE RECORDS SUMMARY | 2025-08-30 13:19 | XMS_ITS | Clinical Summary ---
Author Organization [facility] Address [address] [place] [address] Care Team Providers Care Product Safety Officer Name Role Phone Unavailable Primary Care Provider Unavailabl e Source Comments [facility],non-owned Affiliates and Associated Physician Practices is amultiple site organization consisting of ambulatory clinics and hospital sitesin [place], [place], [place] and [place]. This disclosure is being madepursuant to the Care Everywhere program and may not contain all information available regarding this patient. Last updated 18.[facility] Allergies Active Allergy Reactions Criticality Noted Date Comments Penicillins Urticaria Medium 05/03/2020 Medications * Be aware that medications may not be up to date on this document. Alwaysverify current medications with the patient. NORTRIPTYLINE HCL PO Active escitalopram (LEXAPRO) 10 MG tablet Take 10 mg by mouth once daily Active methylPREDNISol one (MEDROL DOSEPAK) 4 MG tabletIndicatio ns:dermatitis Take by mouth as directed Take as directed by mouth per package instructions. Reasons: dermatitis 1 Each 0 Active Social History Tobacco Use Types Packs/Day Years Used Date Smoking Tobacco: Never Smokeless Tobacco: Never Comments No Sex and Gender Information Value Date Recorded Sex Assigned at Not on file Legal Sex Female 1:46 PM CDT Gender Identity Not on file Sexual Orientation Not on file Last Filed Vital Signs Vital Sign Reading Time Taken Comments Blood Pressure 128/84 10/13/2020 4:28 PM SALESPERSON RECREATIONAL VEHICLES Pulse 86 10/13/2020 4:28 PM SALESPERSON RECREATIONAL VEHICLES Temperature 36.2 C (97.2 F) 10/13/2020 4:28 PM SALESPERSON RECREATIONAL VEHICLES Respiratory Rate 18 10/13/2020 4:28 PM SALESPERSON RECREATIONAL VEHICLES Oxygen Saturation 99% 05/03/2020 6:27 PM CDT Inhaled Oxygen Concentration - - Weight 81.6 kg (180 lb) 05/03/2020 6:27 PM CDT Height 165.1 cm (5' 5) 05/03/2020 6:27 PM CDT Body Mass Index 29.95 05/03/2020 6:27 PM CDT Plan of Treatment Health Maintenance Due Date Last Done Comments BONE DENSITY TESTING 1950 COLOGUARD (AGES 45-75) - COL ON CA SCREENING 1950 COLON MONITORING 1950 COLONOSCOPY - COLON CA SCREENING 1950 CT COLONOGRAPHY - COLON CA SCREENING 1950 Colorectal Cancer Screening 1950 FIT - COLON CA SCREENING 1950 FLEX SIG - COLON CA SCREENING 1950 LIPID TESTING 1950 MAMMOGRAM 1950 HEPATITIS C SCREENING 06/13/1969 DTAP/TDAP/TD VACCINES (1 - Tdap) 1970 PNEUMOCOCCAL VACCINE 50+ (1 of 1 - PCV) 2001 ZOSTER VACCINE (1 of 2) 2001 SCREENING FOR DIABETES 05/03/2020 DEPRESSION SCREENING 11/02/2024 COVID-19 VACCINE (1 - 2023-2 5 season) 2025 INFLUENZA VACCINE (#1) 2025 Respiratory Syncytial Virus (RSV) Vaccine Pt: or over 60 yrs (1 - 1-dose 75+ series) 2026 HEPATITIS B VACCINE Aged Out No longe r eligible based on patient's age to complete this topic HIB VACCINE Aged Out No longer eligi ble based on patient's age to complete this topic HPV VACCINE Aged Out No longer eligi ble based on patient's age to complete this topic MENINGOCOCCAL (Group B) VACC INE SHARED DECISION-MAKING Aged Out No longer eligibl e based on patient's age to complete this topic MENINGOCOCCAL GROUPS A/C/Y/W VACCINE Aged Out No longer eligible b ased on patient's age to complete this topic Insurance MEDICARE [facility] MEDICARE
--- NOTE | 2025-08-30 13:46 | ECG_ITS ---
Test Date: 2025-08-30 14:07:00 Measurements Intervals [place] Rate: 84 P: 78 [place]: 146 QRS: 40 QRSD: 140 T: 17 QT: 380 QTc: 450 Interpretive Statements SINUS RHYTHM RIGHT BUNDLE BRANCH BLOCK BASELINE ARTIFACT- I, II, III, AVR, AVL V4 ABNORMAL ECG No previous ECG available for comparison Electronically Signed On 08-30-2025 14:15:50 CDT by Joshua Simpson D.O.
[2025-08-30 14:27] LABS: Hematocrit 42.7 % (37.0-47.0); Hemoglobin 14.6 g/dL (12.0-15.0); Immature Granulocyte Percent A 0.3 % (0-0.5); Lymphocytes Absolute Auto 1.13 K/mm3 (0.9-3.2); Mean Corpuscular HGB Conc 34.2 g/dl (32-36); Mean Corpuscular Hemoglobin 35.7 pg (26-34); Mean Corpuscular Volume 104.4 fl (80-100); Nucleated Red Blood Cells Absolute Auto 0.000 K/mm3 (0.0-0.012); Nucleated Red Blood Cells Perc 0.0 % (0.0-0.2); Platelet Count Result 239 k/mm3 (150-375); Red Blood Count 4.09 M/mm3 (4.2-5.4); White Blood Count 14.4 K/mm3 (4.5-10.0)
[2025-08-30 14:47] LABS: Alanine Aminotransferase 77 U/L (6-35); Albumin Level 5.1 g/dL (3.5-5.1); Alkaline Phosphatase 161 U/L (38-126); Anion Gap 16 mmol/L (4-12); Aspartate Amino Transferase 143 U/L (14-36); Bilirubin,Total 1.2 mg/dL (0.2-1.3); Blood Urea Nitrogen 7 mg/dL (7-17); Calcium 9.6 mg/dL (8.4-10.2); Carbon Dioxide 25 mmol/L (22-30); Chloride 96 mmol/L (98-107); Estimated CRCL calculation 49 ml/min; Estimated Glomerular Filt Rate > 60; Glucose 92 mg/dL (65-110); Potassium 4.3 mmol/L (3.4-5.0); Sodium 137 mmol/L (137-145); Total Protein 9.1 g/dL (6.3-8.2)
[2025-08-30 14:58] LABS: Troponin I < 0.012 ng/mL (0.000-0.034)
--- OUTSIDE RECORDS SUMMARY | 2025-08-30 15:17 | XMS_ITS | Clinical Summary ---
Author Organization [facility] Address [address] [place] [address] Care Team Providers Care Animal Care Provider Name Role Phone Unavailable Primary Care Provider Unavailabl e Source Comments [facility],non-owned Affiliates and Associated Physician Practices is amultiple site organization consisting of ambulatory clinics and hospital sitesin [place], [place], [place] and [place]. This disclosure is being madepursuant to the Care Everywhere program and may not contain all information available regarding this patient. Last updated 18.[facility] [employer] Allergies Active Allergy Reactions Criticality Noted Date [...] Comments Blood Pressure 128/84 10/13/2020 4:28 PM CUSTOMER CARE COORDINATOR Pulse 86 10/13/2020 4:28 PM CUSTOMER CARE COORDINATOR Temperature 36.2 C (97.2 F) 10/13/2020 4:28 PM CUSTOMER CARE COORDINATOR Respiratory Rate 18 10/13/2020 4:28 PM CUSTOMER CARE COORDINATOR Oxygen Saturation 99% 05/03/2020 6:27 PM CDT [...] age to complete this topic Insurance MEDICARE [facility] MEDICARE
--- OUTSIDE RECORDS SUMMARY | 2025-08-30 15:17 | XMS_ITS | Clinical Summary ---
Author Organization [facility] Address [address] [place] [address] Care Team Providers Care Radiation Control Specialist Name Role Phone Unknown, Notinfile Primary Care [...] Active Problems Problem Noted Date Diagnosed Date NROMA (acute kidney injury) 11/06/2023 Overview (11/06/2023): Cr mildly increased to 1.20 from baseline of 1.0 during last visit. - recheck [facility] today Assessment & Plan (11/06/2023 9:39 AM WILL CALL ORDER CLERK): Cr mildly increased to 1.20 from baseline of 1.0 during last visit. - recheck BMP today Macrocytosis without anemia 10/29/2023 Overview (11/06/2023): Prior labs demonstrated MCV of 106.6 Hg 13.5. Repeat labs with B12 259, folate was hemolyzed. LDH 317, haptoglobin 150. - check homocysteine and methylmalonic acid - recheck folate Assessment & Plan (11/06/2023 9:38 AM WILL CALL ORDER CLERK): Prior labs demonstrated MCV of 106.6 Hg [...] unchanged from 2017 with continued RBBB, no VA prolongation and normal QTc. Given concern for possible cardiac syncope and the risk of repeated falls (head trauma, fracture) recommended patient be admitted for observation for telemetry monitoring and TTE. Would recommend Holter monitor following discharge. Patient agreeable to direct admission. [facility] called and approved admission, pending bed availability. Assessment & Plan (11/06/2023 9:38 AM WILL CALL ORDER CLERK): Today patient states she has not had further syncopal events since last week, but she continues to have issues with balance when she walks and feeling unstable. - call cardiac lab to inquire about adhesive strips for monitor - instructed patient to discuss nortriptyline dosage with psychiatry later today Assessment & Plan (10/30/2023 7:37 AM WILL CALL ORDER CLERK): - Unclear etiology - Unlikely vasovagal or [...] 10/29/2023 Assessment & Plan (10/30/2023 7:37 AM WILL CALL ORDER CLERK): - Continue Lexapro Fibromyalgia 10/29/2023 Assessment & Plan (10/30/2023 7:37 AM WILL CALL ORDER CLERK): - Continue nortriptyline Hot flashes 09/02/2022 Assessment & Plan (10/04/2022 5:08 PM WILL CALL ORDER CLERK): Occurs few times weekly for 10-15 min [...] Assessment & Plan (07/04/2022 3:54 PM CDT): [place] reproduced symptoms with nystagmus. Performed Mihir. Educated [...] month Assessment & Plan (11/06/2023 9:40 AM WILL CALL ORDER CLERK): Recent elevated blood pressures in the ED up to 190s. BP today 152/66. - start losartan 25mg daily - instructed patient to bring BP cuff to next appointment - BP check in 1 month Assessment & Plan (10/04/2022 5:02 PM WILL CALL ORDER CLERK): Has not started amlodipine, and having home [...] 07/04/2022 Assessment & Plan (10/04/2022 5:06 PM WILL CALL ORDER CLERK): Persistent for several months. Did not respond [...] - If negative, consider referral for ABIs. [facility] maintenance 06/14/2022 Assessment & Plan (11/06/2023 9:41 AM WILL CALL ORDER CLERK): Last colonoscopy 2016 w/ polyp and diverticulosis, repeat in 5 years recommended. No mammogram on file. - ordered colonoscopy and mammo Assessment & Plan (10/04/2022 5:08 PM WILL CALL ORDER CLERK): Strongly encouraged to call to schedule mammogram [...] panel Assessment & Plan (11/06/2023 9:41 AM WILL CALL ORDER CLERK): 10/29/23 lipid panel chol 233, HDL 74, [...] psych Assessment & Plan (12/05/2020 4:58 PM WILL CALL ORDER CLERK): Tee Forte is a 70 y.o. female [...] hoarding. Supportive psychotherapy provided regarding living in [facility]. 3. Medical: Has fibromyalgia, follows regularly [...] months. Assessment & Plan (11/17/2018 6:55 PM WILL CALL ORDER CLERK): This is a 68 year old , [...] reassess at next appointment after return from [place]. 1. Psychopharmacology: -Continue nortriptyline 75mg qHs, Lexapro [...] passive suicidal ideation with no confounding psychosis, omy, or substance use. Diagnosis of hoarding disorder [...] Description 08/30/2025 10:30 AM CDT Office Visit [facility] at [address] [address] Radha Wong NP Acute cystitis [...] on file Legal Sex Female 3:45 AM WILL CALL ORDER CLERK Gender Identity Not on file Sexual Orientation [...] MAMMOGRAM W ANT Routine 10/16/2016 3:16 PM WILL CALL ORDER CLERK COLONOSCOPY REPORT 09/29/2016 DEXA AXIAL SKELETON BONE DENSITY 1 OR MORE SITES Routine 06/15/2015 1:29 PM CDT from Last 3 Months or Most Recently Relevant to Health Maintenance Results * (ABNORMAL) POCT urinalysis dipstick (08/30/2025 10:48 AM CDT) Color, Urine, POC Red Clarity, ur, POC Turbid(A) Clear Glucose, ur, POC Negative Negative Bilirubin, ur, POC Large(A) Negative Ketones, ur, POC 40.(A) Negative Specific [place], POC 1.020 1.003 - 1.030 Blood, ur, POC Large(A) Negative pH, ur, POC 8.5(A) 5.0 - 8.0 Protein, ur, POC 300.(A) Negative Urobilinogen, urine, POC 2.0(A) 0.2 - 1.0 mg/dL Nitrite, ur, POC Positive(A) Negative Leukocytes, ur, POC Large(A) Negative Lot Number [id number] Urine 08/30/2025 10:4 8 AM CDT us Radha Wong NP POINT OF CARE TEST ORDERABLES F inal Result * Hepatitis C antibody (04/14/2022 4:10 PM CDT) Hep C Ab Nonreactive Nonreactive [facility] Comment:Antibodies to HCV no t detected. Does NOT exclude the possibility of recent exposure to HCV. Blood 04/14/2022 4:10 PM CDT 04/14/2022 4:41 PM CDT us Robin Carrillo MD LAB MICROBIOLOGY - GENERAL O RDERABLES Edited Result - Final [facility] Department [place] [address] * Screening Mammogram W Ant (10/16/2016 3:16 PM WILL CALL ORDER CLERK) Anatomical Region Laterality Modality Breast N/A Mammography 10/16/2016 3:16 PM WILL CALL ORDER CLERK Narrative 10/23/2016 9:50 AM WILL CALL ORDER CLERK CARLOS EDUARDO FERRIS M.D. FINAL REPORT ACC# Date Time Exam [id number] Oct 16, 2016 15:16:00 [facility] [id number] Bilateral screen w ant Technologist(s): Joanna Cuadra; ; EXAMINATION: Mammogram Technique: Bilateral Full-Field Digital Screening Mammogram and Digital Breast Tomosynthesis were performed. Views obtained: bilateral craniocaudal and bilateral mediolateral oblique. Computer Aided Detection of the 2D images was performed with Circalit.3 version 9.3. Mammogram Findings: There are scattered [...] FERRIS M.D. on Oct 23 2016 9:50A [id number] Procedure Note Provider, MD Dylan - 03/09/2017 CARLOS EDUARDO FERRIS M.D. FINAL REPORT ACC# Date Time Exam [id number] Oct 16, 2016 15:16:00 [facility] [id number] Bilateral screen w ant Technologist(s): Joanna Cuadra; ; EXAMINATION: Mammogram Technique: Bilateral Full-Field Digital Screening Mammogram and Digital Breast Tomosynthesis were performed. Views obtained: bilateral craniocaudaland bilateral mediolateral oblique. Computer Aided Detection of the 2Dimages was performed with SAFCell 1.3 version 9.3. Mammogram Findings: There are [...] FERRIS M.D. on Oct 23 2016 9:50A [id number] us Historical Provider MD [facility] MAMMO PROCEDURES [...] agrees with it. ACC# Date Time Exam [id number] Jun 15, 2015 13:29:00 [id number] DEXA Axial 1 or 2 sites EXAMINATION: [...] agrees with it. ACC# Date Time Exam [id number] Jun 15, 2015 13:29:00 [id number] DEXA Axial 1 or 2 sites EXAMINATION: [...] Recently Relevant to Health Maintenance Insurance MEDICARE [facility] MEDIC[facility] Advance Directives For more information, please contact: [phone] * Full Code (Latest Code Status on File) Date Activated Date Inactivated Comments 10/29/2023 3:32 PM 10/30/2023 5:46 PM Care Teams Radiation Control Specialist Relationship Specialty Start Date End Date Unknown, Notinfile PCP - General 08/30/25
[2025-08-30 15:50] LABS: Add Urine Microscopic? YES; Appearance Urine Cloudy (Clear); Glucose Urine UA Negative (Negative); Leukocyte Esterase Ur 3+ LEU/UL (Negative); Nitrate Urine Negative (Negative); Non Pathogenic Casts 0-2; Specific Grav Ur 1.009 (1.001-1.035)
--- NOTE | 2025-08-30 17:26 | ED_ITS ---
HPI - Dizziness General Chief Complaint: Dizziness Stated Complaint: uti, and dizziness Time Seen by Provider: 08/30/25 13:31 Source: patient Mode of arrival: ambulatory Limitations: no limitations History of Present Illness HPI Narrative: 75-year-old with a history of benign positional vertigo, peripheral neuropathy here with a complains of progressive worsening of dizziness. Patient states that she was seen in the ER a week ago for the same however now she is having more problems walking he feels very unstable had a gate. She was at urgent care diagnosed with uti , now having some blood in the urine , denies any CP pain ,nausea or vomiting. MD elicited complaint: dizziness Pertinent past history: BPPV Onset (ago): week(s) Timing: gradual onset Severity: moderate Description: sense of movement, room spinning and difficulty walking Exacerbating factors: nothing Relieving factors: nothing Associated symptoms: denies other symptoms Related Data Home Medications ?Medication ?Instructions ?Recorded ?Confirmed ?Last Taken ?Type escitalopram oxalate 20 mg tablet 20 tablet PO DAILY 0 03/28/22 03/28/22 Unknown History nortriptyline 75 mg capsule 75 cap PO DAILY 03/28/22 0 03/28/22 Unknown History Allergies Allergy/AdvReac Type Severity Reaction Status Date / Time Penicillins Allergy Unknown Other Verified 08/30/25 14:01 Review of Systems 2 Review of Systems: All systems reviewed & are unremarkable except as noted in HPI and below Constitutional: Constitutional: Reports no additional constitutional complaints Eyes: Eyes: Reports no additional eye complaints ENT: Reports system reviewed and no additional complaints, except as documented Cardiovascular: Cardiovascular: Reports no additional cardiovascular complaints Respiratory: Respiratory: Reports no additional respiratory complaints Gastrointestinal: Gastrointestinal: Reports no additional gastrointestinal complaints Musculoskeletal: Musculoskeletal: Reports no additional musculoskeletal complaints Neurologic: Reports as per HPI PMFSH Past Medical History Medical History History of depression Social History Social History Smoking status: Never smoker Exam 2 Narrative: GENERAL: Well-appearing, well-nourished, and in no acute distress. HEAD: Normocephalic, atraumatic. EYES: PERRLA and EOMI. ENT: Nares clear, no rhinorrhea or epistaxis. Mucous membranes moist. NECK: Supple. CHEST: Clear to auscultation. No respiratory distress. HEART: Regular rate and rhythm. No murmur heard. Normal peripheral pulses. ABDOMEN: Soft, nontender, nondistended, normal active bowel sounds. EXTREMITIES: Normal range of motion. No edema. SKIN: Warm, dry, no rash. NEURO: No focal deficits. Alert and oriented x3. PSYCH: Normal mood and affect. Course Course Emergency Course: Notified patient about her lab work, CT findings. She prefers to be admitted as she is unable to ambulate. Start on IV Rocephin for UTI. Vital Signs Vital signs: Vital Signs Temperature 36.4 C 08/30/25 11:46 Pulse Rate 80 08/30/25 11:46 Respiratory Rate 16 08/30/25 11:46 Blood Pressure 207/68 H 08/30/25 11:46 Pulse Oximetry 97 08/30/25 11:46 Temperature 36.8 C 08/30/25 14:02 Pulse Rate 83 08/30/25 16:28 Respiratory Rate 18 08/30/25 16:28 Blood Pressure 163/79 H 08/30/25 16:28 Pulse Oximetry 95 08/30/25 16:28 Oxygen Delivery Room Air 08/30/25 14:02 MDM - Dizziness Differential Diagnosis Differential diagnosis: Likely benign paroxysmal positional vertigo, cerebrovascular accident and acute vestibular neuronitis Medical Records Attestation: I reviewed the patient's medical records. Lab Data Attestation: I reviewed the patient's lab results. 08/30/25 14:18 08/30/25 14:18 Labs: Lab Results 08/30/25 08/30/25 Range/Units 14:18 15:14 WBC 14.4 H (4.5-10.0) K/mm3 RBC 4.09 L (4.2-5.4) M/mm3 Hgb 14.6 (12.0-15.0) g/dL Hct 42.7 (37.0-47.0) % MCV 104.4 H (80-100) fl MCH 35.7 H (26-34) pg MCHC 34.2 (32-36) g/dl RDW 13.7 (11.5-14.5) % Plt Count 239 (150-375) k/mm3 MPV 9.1 (7.4-10.4) fl Immature Gran % (Auto) 0.3 (0-0.5) % Neut % (Auto) 86.2 H (45.5-73.1) % Lymph % (Auto) 7.8 L (18.3-44.2) % [place] % (Auto) 5.0 (2.6-8.5) % Eos % (Auto) 0.1 (0-4.4) % Baso % (Auto) 0.6 (0.2-1.2) % Lymph # (Auto) 1.13 (0.9-3.2) K/mm3 [place] # (Auto) 0.7 H (0.1-0.6) K/mm3 Eos # (Auto) 0.0 (0-0.3) K/mm3 Baso # (Auto) 0.1 (0.0-0.1) K/mm3 Abs Immat Gran (auto) 0.05 H (0.00-0.031) K/mm3 Absolute Neuts (auto) 12.4 H (1.3-6.7) K/mm3 Absolute Nucleated RBC 0.000 (0.0-0.012) K/mm3 Nucleated RBC % 0.0 (0.0-0.2) % Sodium 137 (137-145) mmol/L Potassium 4.3 (3.4-5.0) mmol/L Chloride 96 L (98-107) mmol/L Carbon Dioxide 25 (22-30) mmol/L Anion Gap 16 H (4-12) mmol/L BUN 7 D (7-17) mg/dL Creatinine 0.78 (0.7-1.0) mg/dL Estim Creat Clear Calc 49 ml/min Estimated GFR > 60 (59 - ) Glucose 92 (65-110) mg/dL Calcium 9.6 (8.4-10.2) mg/dL Total Bilirubin 1.2 (0.2-1.3) mg/dL AST 143 H (14-36) U/L ALT 77 H (6-35) U/L Alkaline Phosphatase 161 H (38-126) U/L Troponin I < 0.012 (0.000-0.034) ng/mL Total Protein 9.1 H (6.3-8.2) g/dL Albumin 5.1 (3.5-5.1) g/dL Urine Color Yellow (Yellow) Urine Appearance Cloudy H (Clear) Urine pH 8.0 (5.0-9.0) Ur Specific [place] 1.009 (1.001-1.035) Urine Protein 2+ H (Negative) mg/dL Urine Glucose (UA) Negative (Negative) mg/dL Urine Ketones 2+ H (Negative) mg/dL Ur Blood (Man) 3+ H (Negative) Urine Nitrate Negative (Negative) Urine Bilirubin Negative (Negative) Urine Urobilinogen 1.0 (<2.0) mg/dL Leukocyte Esterase Rfl 3+ H (Negative) CHARLES/UL Urine RBC >100 H (0-2) /hpf Urine WBC >100 H (0-3) /hpf Ur Squamous Epith Cells None seen (Few) /hpf Urine Bacteria 2+ H /hpf Urine Casts 0-2 Imaging Data Radiologist's impression: ITS Impressions Head CT 08/30/25 13:59 IMPRESSION: 1. Normal aging brain. Abdomen/Pelvis CT 08/30/25 16:55 IMPRESSION: 1. Thickening of the patel of the bladder. Differential includes incomplete bladder wall distention versus cystitis. 2. There is a 3.0 x 4.0 x 3.7 cm hypodense structure in the medial segment of the left lobe of the liver and about the falciform ligament. Differential includes but is not limited to focal fatty infiltration or mass. A liver mass MRI is recommended for further assessment. 3. Large hiatal hernia. 4. Small fat-containing right inguinal hernia. ECG Data EKG #1: ECG completion date: 08/30/25 ECG completion time: 14:07 EKG Interpretation: normal rate (84), no ectopy, other (Paced ) and no acute changes Discharge Plan Discharge Clinical Impression: Dizziness, Acute UTI Patient Disposition: Still a Patient Condition: Stable Patient Language: Rw[place] Prescriptions: No Action acetaminophen 500 mg capsule 500 mg PO Q6H PRN (Reason: pain) Qty: 30 0RF cyclobenzaprine 5 mg tablet 5 mg PO TID PRN (Reason: muscle spasm) Qty: 30 0RF ibuprofen 400 mg tablet 400 mg PO Q6H PRN (Reason: pain) Qty: 30 0RF nortriptyline 75 mg capsule 75 cap PO DAILY escitalopram oxalate 20 mg tablet 20 tablet PO DAILY meclizine 25 mg tablet 25 mg PO BID PRN (Reason: dizziness) Qty: 10 0RF Follow-up/Referrals: PHYSICIAN NOT ON STAFF,NONSTAFF [Primary Care Provider]
[2025-08-30] MEDS: cefTRIAXone 1 GM in SODIUM CHLORIDE 0.9% IV 50 ML 100 ML IVPB (18:00)
--- NOTE | 2025-08-30 18:45 | PC.NURSE ---
This patient, Yolanda Forte, was admitted to [facility] Surg Room 330-02. Patient/family oriented to hospital policies and general routines including ID bracelet, bed and alarms, visiting hours, pain management, procedures, bathroom and other care routines, personal items, smoking policy, room service/diet, and visiting hours. Information on how to activate the Rapid Response Team has been discussed. Patient/Family are encouraged to report perceived risks to care and to ask questions if they do not understand what they are told or what they should do.
--- NOTE | 2025-08-30 20:34 | P.HP_ITS ---
H&P: HPI History of Present Illness Date/Time: 08/30/25 20:34 Chief Complaint: Bladder infection, difficulty walking Narrative: 75-year-old female with a past medical history anxiety, depression, insomnia, benign positional vertigo, peripheral neuropathy and heavy alcohol use who presented to the ER from urgent care due to UTI symptoms and difficulty walking. The patient reports that for the last couple of months she has had progressive loss of balance. She has become paranoid that she is going to fall. She states that she is not really dizzy but has difficulty telling where she has since base. She reports that if she moves her head the wrong way she feels like she loses her balance. She has to walk around the house by holding onto objects. She had a fall up about 3 weeks ago that she reports was ?pretty bad?. She denies any head injury or or headache. She denies any lightheadedness with standing but is reports progressive weakness. She feels like her legs will not support her anymore. The she denies any double vision or difficulty speaking. She has not had any difficulty holding onto objects with her hands or difficulty with coordination with her hands. She has had a long history of idiopathic neuropathy for at least 15 years but she reported used only being her toes but it is progressively worsen. Over the last several weeks she has noticed the sensation going up into her calves. She denies any associated back pain. She does admit that she drinks 1.75 L of scotch a week. She has had longstanding history of depression and anxiety and her nortriptyline and Lexapro were stopped a year and half ago due to new right bundle-branch block and concerns for her cardiac rhythm. She reports that they tried to switch her to Cymbalta but she did not tolerate this medication. And as such she has been increasing her alcohol consumption to deal with her anxiety. She reports that she has paranoid that someone is going to break into the house or that she is going to fall. She reports worrying about the house catching on fire and other random thoughts. She denies any intent to hurt herself or others. She states in addition to her other symptoms she also had developed new onset of dysuria, urinary frequency and urgency on the . Overnight she began having some suprapubic pressure and the on the morning of the she began having hematuria. She denies having any fevers or chills. She has been having some mild nausea but no vomiting. She has a distant history of GERD associated with her large hiatal hernia but this has not given her issues in years. She reports that she has been having 2-3 soft stools a day for along term basis the last 6 months to a year. She denies any hematochezia or melena. She denies any loss of bowel control but did have some leakage of urine earlier today with her other urinary symptoms. Her last alcoholic drink was on the night of the . She also did not drink as much as usual on the because she suspected that she was getting an infection. She states that she has never been hospitalized for alcohol withdrawal but she does get markedly more anxious when she does not drink. She reports that she gets in a panic like state. She states that she used to see a psychiatrist over at [place] but they will no longer take her back in the practice since she has not been there for over a year. She has not seen a physician since March of 2024 and does not have a primary care provider. Review of Systems 2 Review of Systems: 12 systems were reviewed with pertinent positives and negatives per HPI. Except as documented in the HPI, all other systems were reviewed and are negative. [facility] Past Medical History Medical History (Updated 08/31/25 @ 00:51 by Amy Skinner DO) Peripheral neuropathy Alcoholism with alcohol dependence Benign positional vertigo Fibromyalgia Hiatal hernia Large Anxiety and depression Surgical History Surgical History (Updated 08/30/25 @ 20:42 by Amy Skinner DO) History of bladder repair surgery Due to intraoperative laceration History of tonsillectomy and adenoidectomy Hx of cholecystectomy History of appendectomy History of total abdominal hysterectomy and bilateral salpingo-oophorectomy (~1988) Family History Family History Father Carcinoma of lung Mother Carcinoma of lung Congestive heart failure Other Colon cancer Social History Social History (Updated 08/31/25 @ 00:57 by Amy Skinner DO) Social History: She lives in her own home. Her son and [id number] live in the walked out basement. She has drink 1.75 L of alcohol a week for the last year to 1.5 years. She is a lifelong nonsmoker. She denies any illicit substance use. 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 Code status: Full code (she would not want tracheostomy or G-tube) Surrogate decision maker: Luis Eduardo Alvarado (son) Smoking status: Never smoker Alcohol intake: current Drinks per week: 21 Substance use: never Lack of Transportation: No Lack of Food: Never True Current Housing: I Have Housing Concerned About Future Housing: No Difficulty Paying Gas/Electric Bills: No Difficulty Paying for Meds: No Currently Unemployed: No Education: Bachelor's Degree Difficulty w/ Childcare or Family Care: Decline to Answer Spiritual care concerns: No Meds Home Medications and Allergies Home Medications ?Medication ?Instructions ?Recorded ?Confirmed ?Type acetaminophen 500 mg capsule 500 mg PO Q6H PRN pain #3 0 caps 08/11/25 08/30/25 Rx ibuprofen 400 mg tablet 400 mg PO Q6H PRN pain #30 t abs 08/11/25 08/30/25 Rx Allergies Allergy/AdvReac Type Severity Reaction Status Date / Time Penicillins Allergy Unknown Other Verified 08/30/25 20:07 Beef Containing Products AdvReac Severe Other Verified 08/30/25 20:07 Vital Signs Vital Signs - 24 hr 08/30/25 11:46 08/30/25 14:02 08/30/25 14:15 Temperature 97.6 F 98.2 F Pulse Rate 80 87 89 Respiratory Rate 16 15 Blood Pressure 207/68 H 200/85 H Pulse Oximetry 97 100 Oxygen Delivery Room Air 08/30/25 16:28 08/30/25 17:42 08/30/25 18:02 Temperature Pulse Rate 83 88 90 Respiratory Rate 18 15 17 Blood Pressure 163/79 H 164/71 H 159/70 H Pulse Oximetry 95 96 97 Oxygen Delivery 08/30/25 18:29 Temperature 98.7 F Pulse Rate 83 Respiratory Rate 16 Blood Pressure 171/67 H Pulse Oximetry 95 Oxygen Delivery Exam 2 Narrative: Weight 72.1 kg BMI 26.5 Const: Other: No acute distress, well-developed well-nourished, appears stated age HENMT: Other: Mucous membranes are tacky, no oral pharyngeal erythema, head is normocephalic atraumatic Eyes: Other: Pupils are equal and reactive with bilateral cataracts noted, no scleral icterus, no conjunctival pallor Neck: Other: No JVD, no carotid bruit, no thyromegaly Resp: Other: Lungs are clear to auscultation bilaterally, no increased work of breathing Cardio: Other: Regular rate, regular rhythm, 2+ bilateral radial pedal pulses, no murmur GI: Other: Soft, nontender, nondistended, normoactive bowel sounds Skin: Other: Aging bruise to the left lower extremity, non jaundice, generalized pallor Neuro: Other: Patient is alert orient x4, speech is clear, cranial nerves 2-12 grossly intact, no nystagmus, decreased sensation of bilateral lower extremities up to the knee, [id number] intact, patient has difficulty with coordination of [id number], no gross motor deficits noted, no pronator drift Extrem: Other: No clubbing, cyanosis or edema, 5/5 size marker strength Psych: Other: Anxious but otherwise pleasant and cooperative, judgment and insight intact H&P: Results Labs Labs: Laboratory Tests 08/30/25 14:18 08/30/25 14:18 08/30/25 08/30/25 14:18 15:14 WBC 14.4 H RBC 4.09 L Hgb 14.6 Hct 42.7 MCV 104.4 H MCH 35.7 H MCHC 34.2 RDW 13.7 Plt Count 239 MPV 9.1 Immature Gran % (Auto) 0.3 Neut % (Auto) 86.2 H Lymph % (Auto) 7.8 L [place] % (Auto) 5.0 Eos % (Auto) 0.1 Baso % (Auto) 0.6 Lymph # (Auto) 1.13 [place] # (Auto) 0.7 H Eos # (Auto) 0.0 Baso # (Auto) 0.1 Abs Immat Gran (auto) 0.05 H Absolute Neuts (auto) 12.4 H Absolute Nucleated RBC 0.000 Nucleated RBC % 0.0 Sodium 137 Potassium 4.3 Chloride 96 L Carbon Dioxide 25 Anion Gap 16 H BUN 7 D Creatinine 0.78 Estim Creat Clear Calc 49 Estimated GFR > 60 Glucose 92 Calcium 9.6 Total Bilirubin 1.2 AST 143 H ALT 77 H Alkaline Phosphatase 161 H Troponin I < 0.012 Total Protein 9.1 H Albumin 5.1 Urine Color Yellow Urine Appearance Cloudy H Urine pH 8.0 Ur Specific [place] 1.009 Urine Protein 2+ H Urine Glucose (UA) Negative Urine Ketones 2+ H Ur Blood (Man) 3+ H Urine Nitrate Negative Urine Bilirubin Negative Urine Urobilinogen 1.0 Leukocyte Esterase Rfl 3+ H Urine RBC >100 H Urine WBC >100 H Ur Squamous Epith Cells None seen Urine Bacteria 2+ H Urine Casts 0-[address] 08/30/25 13:59 IMPRESSION: 1. Normal aging brain. Abdomen/Pelvis CT 08/30/25 16:55 IMPRESSION: 1. Thickening of the patel of the bladder. Differential includes incomplete bladder wall distention versus cystitis. 2. There is a 3.0 x 4.0 x 3.7 cm hypodense structure in the medial segment of the left lobe of the liver and about the falciform ligament. Differential includes but is not limited to focal fatty infiltration or mass. A liver mass MRI is recommended for further assessment. 3. Large hiatal hernia. 4. Small fat-containing right inguinal hernia. Assessment and Plan Assessment and plan (1) Acute UTI: Code(s): N39.0 - Urinary tract infection, site not specified Status: Acute (2) Ataxia: Code(s): R27.0 - Ataxia, unspecified Status: Acute (3) Elevated blood pressure reading without diagnosis of hypertension: Code(s): R03.0 - Elevated blood-pressure reading, without diagnosis of hypertension Status: Acute (4) Transaminitis: Code(s): R74.01 - Elevation of levels of liver transaminase levels Status: Acute (5) Abnormal CT of liver: Code(s): R93.2 - Abnormal findings on diagnostic imaging of liver and biliary tract Status: Acute (6) Macrocytosis without anemia: Code(s): D75.89 - Other specified diseases of blood and blood-forming organs Status: Acute (7) Dehydration: Code(s): E86.0 - Dehydration Status: Acute (8) Alcoholism with alcohol dependence: Qualifiers: Substance use status: alcohol-induced anxiety disorder Qualified Code(s): F10.280 - Alcohol dependence with alcohol-induced anxiety disorder Code(s): F10.20 - Alcohol dependence, uncomplicated Status: Acute (9) Peripheral neuropathy: Qualifiers: Peripheral neuropathy type: polyneuropathy, unspecified Qualified Code(s): G62.9 - Polyneuropathy, unspecified Code(s): G62.9 - Polyneuropathy, unspecified Status: Acute (10) Anxiety and depression: Code(s): F41.9 - Anxiety disorder, unspecified; F32.A - Depression, unspecified Status: Acute Plan Patient has imaging findings with bladder wall thickening, leukocytosis and UA suggestive of UTI with hematuria. He has been started on empiric antibiotic therapy with Rocephin. Urine cultures have been obtained and are pending. Patient's urinalysis also demonstrate ketones, elevated serum protein and she has an elevated anion gap suggesting some component of dehydration. Will start the patient on normal saline at 125 mL an hour for 2 L then re-evaluate fluid status. Will monitor strict I&O's. Patient was initially thought to have vertigo in the ER but symptoms she is describing seem more consistent with ataxia. Her ataxia could be due to CVA verses toxicity from heavy alcohol use. Will obtain MRI of the brain. Will place patient on high-dose thiamin 500 mg IV q.8 hours x3 days. Will initiate vitamin replacement of folic acid and multivitamin as well. Will start the patient on scheduled Valium for treatment of alcohol withdrawal with p.r.n. Valium as needed for scores 8-15. I have given orders to call provider if CIWA score greater than 15 for additional orders. The patient verbalizes desire to stop drinking alcohol to excess. She states that she needs treatment for her anxiety and depression. I do not feel comfortable starting the patient on antidepressant without her having outpatient follow-up. She has not seen a doctor in many years. She will need to be established with a primary care physician and/or Psychiatry on discharge. Patient does have elevated transaminases. Transaminitis could be due to patient's heavy alcohol use or related abnormal CT of the liver with a 3.0 x 4.0 x 3.7 cm hypodense structure in the medial segment of the left lobe of the liver and about the falciform ligament. Differential includes but is not limited to focal fatty infiltration or mass. Will check nonemergent MRI of the liver and will obtain viral hepatitis panel. The patient has macrocytosis without diagnosis of anemia. Will check B12 and folic acid level. Will check TSH. Has hypothyroidism and vitamin deficiency scanned contribute to the history of neuropathy and vertigo symptoms. Patient has been admitted as observation status. MEDICAL DECISION MAKING NARRATIVE -Spoke with the ED provider in detail regarding patient's evaluation, workup and management -Patient seen and examined at bedside -Collaborated with patient's nurse at the bedside in detail and addressed all concerns -Labs, electrolytes, radiology, investigations and test results personally reviewed and interpreted unless otherwise specified -ED/Consult/Nursing/Ancilliary notes on the chart reviewed and appreciated -Spoke with patient at bedside and diagnosis and plan of care was discussed. All questions answered. Quality VTE Prophylaxis VTE prophylaxis: mechanical ordered (SCDs) Hospitalist MIPS Advance Care Plan I have confirmed that the patient's Advanced Care Plan is present, code status is documented, or surrogate decision maker is listed in patient medical record.: Yes Medication Reconciliation I have utilized all available resources to obtain, update and review the patients current medications (includes all prescriptions, OTC, herbals, cannabis, and nutritional supplements).: Yes
[2025-08-30] MEDS: MECLIZINE HCL 12.5 MG TABLET PO (20:46)
[2025-08-30] MEDS: SODIUM CHLORIDE 0.9% IV 1,000 ML 125 ML IV CONT (20:50)
[2025-08-31] MEDS: THIAMINE 500 MG/NS 100 ML 500 MG/100 ML BAG 200 MG IVPB ×3 (01:08→16:04)
[2025-08-31] MEDS: SODIUM CHLORIDE 0.9% IV 1,000 ML 125 ML IV CONT (05:29)
[2025-08-31] MEDS: diazePAM (*CRX) 10 MG TABLET PO ×3 (05:29→16:59)
[2025-08-31 05:39] LABS: Hematocrit 38.0 % (37.0-47.0); Hemoglobin 12.7 g/dL (12.0-15.0); Mean Corpuscular HGB Conc 33.4 g/dl (32-36); Mean Corpuscular Hemoglobin 35.5 pg (26-34); Mean Corpuscular Volume 106.1 fl (80-100); Platelet Count Result 181 k/mm3 (150-375); Red Blood Count 3.58 M/mm3 (4.2-5.4); White Blood Count 7.5 K/mm3 (4.5-10.0)
[2025-08-31 05:58] VITALS: BP 163/68; PULSE 77; RESP 16; TEMP 36.9; O2SAT 98
[2025-08-31 06:01] LABS: Magnesium 1.9 mg/dL (1.6-2.3)
[2025-08-31 06:22] LABS: Alanine Aminotransferase 48 U/L (6-35); Albumin Level 4.1 g/dL (3.5-5.1); Alkaline Phosphatase 121 U/L (38-126); Anion Gap 7 mmol/L (4-12); Aspartate Amino Transferase 65 U/L (14-36); Bilirubin,Total 0.8 mg/dL (0.2-1.3); Blood Urea Nitrogen 6 mg/dL (7-17); Calcium 8.7 mg/dL (8.4-10.2); Carbon Dioxide 25 mmol/L (22-30); Chloride 102 mmol/L (98-107); Estimated CRCL calculation 54 ml/min; Estimated Glomerular Filt Rate > 60; Glucose 89 mg/dL (65-110); Potassium 3.6 mmol/L (3.4-5.0); Sodium 134 mmol/L (137-145); Total Protein 7.0 g/dL (6.3-8.2)
[2025-08-31 06:31] LABS: Thyroid Stimulating Hormone Reflex 4.610 uIU/mL (0.465-4.68)
[2025-08-31 06:32] LABS: Hepatitis B Surface Antigen Negative (Negative)
[2025-08-31 06:38] LABS: HAV RESULT Negative (Negative); Hepatitis B Core IgM Result Negative (Negative)
[2025-08-31 07:25] LABS: Vitamin B12 508.0 pg/mL (239-931)
[2025-08-31 07:41] LABS: Free T4 Free Thyroxine Reflex 1.09 ng/dL (0.78-2.19)
--- NOTE | 2025-08-31 08:15 | PM.IMPN ---
Progress Note: A&P Assessment and Plan (1) Acute UTI: Code(s): N39.0 - Urinary tract infection, site not specified Status: Acute Assessment and Plan: - UA: cloudy appearance with 2+ protein, 2+ ketones, 3+ blood, 3+ leukocytes, >100 RBC, >100 WBC, 2+ bacteria - UC obtained on 08/30: pending - No previous micro to be reviewed - started on rocephin on 08/30 Prior to admission was having burning and dysuria. Resolved since recieving antibiotics. (2) Ataxia: Code(s): R27.0 - Ataxia, unspecified Status: Acute Assessment and Plan: Patient was initially thought to have vertigo in the ER but symptoms she is describing seem more consistent with ataxia. Denies tinnitus, ear pain, recent infection Denies dizziness/gait instability being related to position changes Her ataxia could be due to CVA verses toxicity from heavy alcohol use. Head CT and brain MRI unremarkable. PT/OT consulted (3) Elevated blood pressure reading without diagnosis of hypertension: Code(s): R03.0 - Elevated blood-pressure reading, without diagnosis of hypertension Status: Acute Assessment and Plan: Elevated BP extending back to 2021, currently not on antihypertensives Continue to monitor Hydralazine prn for systolic > 180 (4) Transaminitis: Code(s): R74.01 - Elevation of levels of liver transaminase levels Status: Acute Assessment and Plan: Patient does have slightly elevated transaminases on admission, now downtrending Transaminitis could be due to patient's heavy alcohol use or related abnormal CT of the liver with a 3.0 x 4.0 x 3.7 cm hypodense structure in the medial segment of the left lobe of the liver and about the falciform ligament. Differential includes but is not limited to focal fatty infiltration or mass. MRI showed Diffuse hepatic steatosis with 2.4 x 1.2 cm more focal collection of fat at the junction of the left and right navarro hepatis corresponding to the hypodense lesion of concern on prior CT. (5) Alcoholism with alcohol dependence: Qualifiers: Substance use status: alcohol-induced anxiety disorder Qualified Code(s): F10.280 - Alcohol dependence with alcohol-induced anxiety disorder Code(s): F10.20 - Alcohol dependence, uncomplicated Status: Acute Assessment and Plan: Drinks 1.75 l of scotch per week for past year. She denies prior withdraw but states has only been sober for no longer than 24 hours. High-dose thiamin 500 mg IV q.8 hours x3 days. Continue vitamin replacement of folic acid and multivitamin Will start the patient on scheduled Valium for treatment of alcohol withdrawal with p.r.n. Valium as needed for scores 8-15. The patient verbalizes desire to stop drinking alcohol to excess. Care coordination consulted. (6) Anxiety and depression: Code(s): F41.9 - Anxiety disorder, unspecified; F32.A - Depression, unspecified Status: Acute Assessment and Plan: She related her heavy alcohol use to anxiety as she was previously taking nortriptyline and lexapro however this was stopped by her psychiatrist to trial Cymbalta. She has not seen the psychiatrist in over a year. Do not feel comfortable starting the patient on antidepressant without her having outpatient follow-up. Psychiatry consulted (7) Pancreatic lesion: Code(s): K86.9 - Disease of pancreas, unspecified Status: Acute Assessment and Plan: Abdomen MRI showed Incidental 6 mm simple appearing cystic lesion at the tail the pancreas. Will need a 2 year follow-up pre and postcontrast MRI, to be ordered per PCP (8) Macrocytosis without anemia: Code(s): D75.89 - Other specified diseases of blood and blood-forming organs Status: Acute Assessment and Plan: The patient has macrocytosis without diagnosis of anemia. B12 and folate WNL TSH WNL. Time Spent With Patient Time with patient: 25 - 35 minutes Subjective Date/time seen: 08/31/25 08:15 Interval history: 75-year-old female with a past medical history anxiety, depression, insomnia, benign positional vertigo, peripheral neuropathy and heavy alcohol use who presented to the hospital from urgent care due to UTI symptoms and difficulty walking. Patient is pleasant comfortably in bed. She has no complaints denying chest pain, shortness a breath, palpitations, nausea/vomiting, and abdominal pain. Review of Systems Review of Systems: All systems reviewed & are unremarkable except as noted in HPI and below Exam Narrative: AF HR 77 RR16 SpO2 98 BP 163/68 General: female in no acute respiratory distress who is nontoxic appearing, lying semi recumbent in bed. HEENT: Normocephalic. Atraumatic. Extraocular movement intact. Sclera clear and anicteric. No facial asymmetry. Chest: Lungs are clear to auscultation bilaterally. No wheezes or crackles. CV: Heart was regular rate and rhythm. Abd: Abdomen was soft. Nontender. Nondistended. Positive bowel sounds. Ext: No clubbing, cyanosis, or edema. DP pulses bilaterally. Neuro: Patient is alert. Speech is clear. Objective Data Vital Signs Vital Signs: Vital Signs - 24 hr 08/30/25 11:46 08/30/25 14:02 08/30/25 14:15 Temperature 97.6 F 98.2 F Pulse Rate 80 87 89 Respiratory Rate 16 15 Blood Pressure 207/68 H 200/85 H Pulse Oximetry 97 100 Oxygen Delivery Room Air 08/30/25 16:28 08/30/25 17:42 08/30/25 18:02 Temperature Pulse Rate 83 88 90 Respiratory Rate 18 15 17 Blood Pressure 163/79 H 164/71 H 159/70 H Pulse Oximetry 95 96 97 Oxygen Delivery 08/30/25 18:29 08/30/25 20:00 08/30/25 20:26 Temperature 98.7 F Pulse Rate 83 81 Respiratory Rate 16 Blood Pressure 171/67 H 164/68 H Pulse Oximetry 95 Oxygen Delivery Room Air 08/30/25 21:30 08/30/25 21:30 08/30/25 21:30 Temperature 98.4 F Pulse Rate 91 97 87 Respiratory Rate 20 Blood Pressure 168/73 H 165/94 H 175/100 H Pulse Oximetry 97 Oxygen Delivery 08/31/25 05:58 Temperature 98.5 F Pulse Rate 77 Respiratory Rate 16 Blood Pressure 163/68 H Pulse Oximetry 98 Oxygen Delivery Intake/Output Intake/Output: Intake & Output 08/28/25 08/29/25 08/30/25 08/31/25 23:59 23:59 23:59 23:59 Intake Total 50 1250 Balance 50 1250 Meds/Results Medications: Active Medications Generic Name Dose Route Start Last Admin Trade Name Freq PRN Reason Stop Dose Admin Acetaminophen 650 mg 08/30/25 17:37 Acetaminophen 325 Mg Tablet PO Q4H PRN Mild Pain (1-3) or Fever Diazepam 10 mg 08/31/25 06:00 08/31/25 05:29 Diazepam (*Crx) 10 Mg Tablet PO 10 mg Q6HR ROXANNA Administration Folic Acid 1 mg 08/31/25 09:00 Folic Acid 1 Mg Tablet PO DAILY ROXANNA Ceftriaxone Sodium 1 gm/ 50 mls @ 100 mls/hr 08/31/25 18:00 Sodium Chloride IVPB Q24H ROXANNA Sodium Chloride 1,000 mls @ 125 mls/hr 08/30/25 20:10 08/31/25 05:29 Normal Saline Iv IV CONT 08/31/25 12:09 125 mls/hr .Q8H ROXANNA Administration Thiamine HCl 500 mg in 100 mls @ 200 mls/hr 08/31/25 01:00 08/31/25 01:08 IVPB 09/03/25 00:59 200 mls/hr Q8H ROXANNA Administration Lorazepam 2 mg 08/31/25 00:28 Lorazepam (*Crx) 1 Mg Tablet PO Q2H PRN CIWA>8, HR>100, or DBP>100 Meclizine HCl 12.5 mg 08/30/25 21:00 08/30/25 20:46 Meclizine Hcl 12.5 Mg Tablet PO 12.5 mg QID ROXANNA Administration Multivitamins/Calcium 1 tablet 08/31/25 09:00 Therapeutic Multivitamins/Minerals Tab (*Bkc) PO DAILY ROXANNA Ondansetron HCl 4 mg 08/30/25 17:37 Ondansetron Inj 4 Mg/2 Ml Vial IV PUSH Q4H PRN Nausea Radiology Results: ITS Impressions Head CT 08/30/25 13:59 IMPRESSION: 1. Normal aging brain. Abdomen/Pelvis CT 08/30/25 16:55 IMPRESSION: 1. Thickening of the patel of the bladder. Differential includes incomplete bladder wall distention versus cystitis. 2. There is a 3.0 x 4.0 x 3.7 cm hypodense structure in the medial segment of the left lobe of the liver and about the falciform ligament. Differential includes but is not limited to focal fatty infiltration or mass. A liver mass MRI is recommended for further assessment. 3. Large hiatal hernia. 4. Small fat-containing right inguinal hernia. Labs Labs: Laboratory Results - last 24 hr 08/30/25 08/30/25 08/31/25 14:18 15:14 05:33 WBC 14.4 H 7.5 RBC 4.09 L 3.58 L Hgb 14.6 12.7 Hct 42.7 38.0 MCV 104.4 H 106.1 H MCH 35.7 H 35.5 H MCHC 34.2 33.4 RDW 13.7 13.8 Plt Count 239 181 MPV 9.1 9.0 Immature Gran % (Auto) 0.3 Neut % (Auto) 86.2 H Lymph % (Auto) 7.8 L [place] % (Auto) 5.0 Eos % (Auto) 0.1 Baso % (Auto) 0.6 Lymph # (Auto) 1.13 [place] # (Auto) 0.7 H Eos # (Auto) 0.0 Baso # (Auto) 0.1 Abs Immat Gran (auto) 0.05 H Absolute Neuts (auto) 12.4 H Absolute Nucleated RBC 0.000 Nucleated RBC % 0.0 Sodium 137 134 L Potassium 4.3 3.6 Chloride 96 L 102 Carbon Dioxide 25 25 Anion Gap 16 H 7 BUN 7 D 6 L Creatinine 0.78 0.71 Estim Creat Clear Calc 49 54 Estimated GFR > 60 > 60 Glucose 92 89 POC Capillary Glucose Calcium 9.6 8.7 Phosphorus 4.4 Magnesium 1.9 Total Bilirubin 1.2 0.8 AST 143 H 65 H ALT 77 H 48 H Alkaline Phosphatase 161 H 121 Troponin I < 0.012 Total Protein 9.1 H 7.0 Albumin 5.1 4.1 Vitamin B12 508.0 Folate > 20.0 H TSH (Reflex) 4.610 Free T4 1.09 Urine Color Yellow Urine Appearance Cloudy H Urine pH 8.0 Ur Specific [place] 1.009 Urine Protein 2+ H Urine Glucose (UA) Negative Urine Ketones 2+ H Ur Blood (Man) 3+ H Urine Nitrate Negative Urine Bilirubin Negative Urine Urobilinogen 1.0 Leukocyte Esterase Rfl 3+ H Urine RBC >100 H Urine WBC >100 H Ur Squamous Epith Cells None seen Urine Bacteria 2+ H Urine Casts 0-2 Hepatitis A IgM Ab Negative Hep Bs Antigen Negative Hep B Core IgM Ab Negative Hepatitis C Ab Screen Negative 08/31/25 06:04 WBC RBC Hgb Hct MCV MCH MCHC RDW Plt Count MPV Immature Gran % (Auto) Neut % (Auto) Lymph % (Auto) [place] % (Auto) Eos % (Auto) Baso % (Auto) Lymph # (Auto) [place] # (Auto) Eos # (Auto) Baso # (Auto) Abs Immat Gran (auto) Absolute Neuts (auto) Absolute Nucleated RBC Nucleated RBC % Sodium Potassium Chloride Carbon Dioxide Anion Gap BUN Creatinine Estim Creat Clear Calc Estimated GFR Glucose POC Capillary Glucose 102 Calcium Phosphorus Magnesium Total Bilirubin AST ALT Alkaline Phosphatase Troponin I Total Protein Albumin Vitamin B12 Folate TSH (Reflex) Free T4 Urine Color Urine Appearance Urine pH Ur Specific [place] Urine Protein Urine Glucose (UA) Urine Ketones Ur Blood (Man) Urine Nitrate Urine Bilirubin Urine Urobilinogen Leukocyte Esterase Rfl Urine RBC Urine WBC Ur Squamous Epith Cells Urine Bacteria Urine Casts Hepatitis A IgM Ab Hep Bs Antigen Hep B Core IgM Ab Hepatitis C Ab Screen Quality VTE Prophylaxis VTE prophylaxis: pharmacologic ordered
[2025-08-31] MEDS: MECLIZINE HCL 12.5 MG TABLET PO ×4 (08:27→21:13)
[2025-08-31] MEDS: THERAPEUTIC MULTIVITAMINS/MINERALS TAB (*BKC) 1 TABLET PO (08:27)
[2025-08-31] MEDS: FOLIC ACID 1 MG TABLET PO (08:27)
[2025-08-31 09:47] LABS: Total Triiodothyronine (T3) 1.09 NG/ML (0.82-1.58)
[2025-08-31 13:19] VITALS: BMI 26.4
[2025-08-31 15:07] VITALS: BP 155/69; PULSE 77; RESP 16; TEMP 36.4; O2SAT 99
[2025-08-31] MEDS: cefTRIAXone 1 GM in SODIUM CHLORIDE 0.9% IV 50 ML 100 ML IVPB (16:59)
[2025-08-31 20:00] VITALS: BP 155/69
[2025-08-31 21:40] VITALS: BP 164/63; PULSE 78; RESP 16; TEMP 36.6; O2SAT 98
[2025-08-31 23:37] VITALS: O2SAT 98
[2025-09-01] MEDS: THIAMINE 500 MG/NS 100 ML 500 MG/100 ML BAG 200 MG IVPB ×3 (00:31→16:59)
[2025-09-01] MEDS: diazePAM (*CRX) 10 MG TABLET PO ×4 (00:31→17:52)
[2025-09-01 06:00] VITALS: BP 145/60; PULSE 67; RESP 14; TEMP 36.4; O2SAT 97
--- NOTE | 2025-09-01 06:53 | P.CDI_ITS ---
CDI Query Clarification Request BMI: 26.5 Nutritional Diagnostic Statement: Please refer to the comprehensive nutrition assessment for further information. If you agree with diagnosis of Moderate protein calorie malnutrition related to loss of appetite, decreased intake from chronic weakness, alcohol abuse as evidenced by self-reported weight loss 7%/2 months; intakes <75% needs >1 month; moderate muscle wasting (temporalis, clavicle, shoulder, interosseous) and moderate fat loss (cheeks, ribs). Please specify severity if known: * Mild * Moderate * Severe * Other/Unknown <Esthela Flores RN - Last Filed: 09/01/25 06:54> Clarified Diagnosis Clarified Diagnosis: moderate <Fern Zayas PA-C - Last Filed: 09/01/25 15:06>
--- NOTE | 2025-09-01 07:19 | WPDCNPSYCH ---
Assessment and Plan Assessment and plan (1) Generalized anxiety disorder: Code(s): F41.1 - Generalized anxiety disorder Status: Acute (2) Major depressive disorder, recurrent, mild: Code(s): F33.0 - Major depressive disorder, recurrent, mild Status: Acute (3) Alcoholism with alcohol dependence: Qualifiers: Substance use status: alcohol-induced anxiety disorder Qualified Code(s): F10.280 - Alcohol dependence with alcohol-induced anxiety disorder Code(s): F10.20 - Alcohol dependence, uncomplicated Status: Acute Assessment and Plan: Patient with psychiatric history of depression, anxiety, alcohol use disorder evaluated for additional psychiatric treatment recommendations. She expresses motivation to start medication for anxiety and depression, as she feels sobriety will be possible once anxiety is well managed- as she has been utilizing the alcohol to self medicate anxiety and panic attacks. No current outpatient psychiatrist. Recommendations: -Start sertraline 25mg daily for anxiety, depression ---sertraline has a safer cardiac risk profile compared to alternative medications -Cont CIWA protocol -Cont diazepam taper protocol -Discussed follow up plan- recommend she follow up with psychiatry [facility] outpatient once discharged. --She may follow up at [facility] at discharge for medication management and psychotherapy. Social work may call to schedule apt at [phone] at discharge. --Educated patient on Walk In Clinic if sooner apt is needed HPI Data of Consult Date/Time: 09/01/25 07:19 Requesting Physician: Jh Weller MD Primary Care Provider: PHYSICIAN NOT ON STAFF Consult Narrative Narrative: Yolanda Forte is a 75 year old female admitted to the hospital on 08/30/2025 for UTI, balance difficulties. Psychiatry was consulted for assistance in medication management. She has a psychiatric history of MDD, JACKI, alcohol dependence. Patient reports depression and anxiety have been longstanding, which she has been medicated for since the . Previous medications include fluoxetine, citalopram, escitalopram, and nortriptyline. Notably, patient developed a bundle branch block in Nov 2023 which was attributed to the nortriptyline so this was subsequently discontinued. Her then psychiatrist wanted to start her on duloxetine, which she had been on before and was ineffective, so she declined this medication. She then fell out of coordination with this psychiatric office and has been off of medication since. Over the past year, patient reports her anxiety has significantly worsened and earlier this year begun developing daily panic attacks. She admits to utilizing alcohol to self medicate for her anxiety and manage the panic attacks. Reports drinking up to a 1.75L bottle of scotch every week since Nov 2024. She denies current withdrawal symptoms or history of withdrawals in the past from alcohol. Denies history of seizures. She does report a history of one inpatient behavioral health admission in 2014 for increased depression severity following a move to [facility] from [place] and her dog passing away. She endorses a history of one suicide attempt by OD in college, however admits this was primarily an attention seeking behavior and did not intent to end her life. Denies current suicidal ideation. She expresses interest and motivation for psychiatric treatment and engagement in her care. Review of Systems Psychiatric: Psychiatric: Reports as per HPI, Reports anxiety, Reports depression and Reports panic attacks PMFSH Past Medical History Medical History (Updated 09/01/25 @ 07:27 by Tammi Camargo APRN) Major depressive disorder, recurrent, mild Generalized anxiety disorder Peripheral neuropathy Alcoholism with alcohol dependence Benign positional vertigo Fibromyalgia Hiatal hernia Large Anxiety and depression Surgical History Surgical History (Updated 08/30/25 @ 20:42 by Amy Skinner DO) History of bladder repair surgery Due to intraoperative laceration History of tonsillectomy and adenoidectomy Hx of cholecystectomy History of appendectomy History of total abdominal hysterectomy and bilateral salpingo-oophorectomy (~1988) Family History Family History Father Carcinoma of lung Mother Carcinoma of lung Congestive heart failure Other Colon cancer Social History Social History (Updated 08/31/25 @ 00:57 by Amy Skinner DO) Social History: She lives in her own home. Her son and [id number] live in the walked out basement. She has drink 1.75 L of alcohol a week for the last year to 1.5 years. She is a lifelong nonsmoker. She denies any illicit substance use. 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 Code status: Full code (she would not want tracheostomy or G-tube) Surrogate decision maker: Luis Eduardo Alvarado (son) Smoking status: Never smoker Alcohol intake: current Drinks per week: 21 Substance use: never Lack of Transportation: No Lack of Food: Never True Current Housing: I Have Housing Concerned About Future Housing: No Difficulty Paying Gas/Electric Bills: No Difficulty Paying for Meds: No Currently Unemployed: No Education: Bachelor's Degree Difficulty w/ Childcare or Family Care: Decline to Answer Spiritual care concerns: No Meds Home Medications and Allergies Home Medications ?Medication ?Instructions ?Recorded ?Confirmed ?Type acetaminophen 500 mg capsule 500 mg PO Q6H PRN pain #30 caps 08/11/25 08/30/25 Rx ibuprofen 400 mg tablet 400 mg PO Q6H PRN pain #30 tabs 08/11/25 08/30/25 Rx Allergies Allergy/AdvReac Type Severity Reaction Status Date / Time Penicillins Allergy Unknown Other Verified 08/30/25 20:07 Beef Containing Products AdvReac Severe Other Verified 08/30/25 20:07 Vital Signs Vital Signs - 24 hr 08/31/25 08:00 08/31/25 15:07 08/31/25 20:00 Temperature 97.5 F L Pulse Rate 77 Respiratory Rate 16 Blood Pressure 155/69 H 155/69 H Pulse Oximetry 99 Oxygen Delivery Room Air 08/31/25 21:13 08/31/25 21:40 08/31/25 23:37 Temperature 97.9 F Pulse Rate 78 Respiratory Rate 16 Blood Pressure 164/63 H Pulse Oximetry 98 98 Oxygen Delivery Room Air Room Air 09/01/25 06:00 Temperature 97.6 F Pulse Rate 67 Respiratory Rate 14 Blood Pressure 145/60 H Pulse Oximetry 97 Oxygen Delivery Exam Psych: Appearance: grossly normal Mental Status: mental status grossly normal Speech and movement: Normal speech and movement present Affect: normal affect Attitude: cooperative Thought process: Normal thought process present Thought content: Yes Normal thought content present Insight: Good insight present (Psych) Judgement: Good judgement present (Psych) Results Labs 08/31/25 05:33 08/31/25 05:33
--- NOTE | 2025-09-01 08:42 | P.PNIM_ITS ---
Progress Note: A&P Assessment and Plan (1) Acute UTI: Code(s): N39.0 - Urinary tract infection, site not specified Status: Acute Assessment and Plan: - UA: cloudy appearance with 2+ protein, 2+ ketones, 3+ blood, 3+ leukocytes, >100 RBC, >100 WBC, 2+ bacteria - UC obtained on 08/30: ecoli with sensitivities pending - No previous micro to be reviewed - started on rocephin on 08/30 Prior to admission was having burning and dysuria. Resolved since recieving antibiotics. (2) Ataxia: Code(s): R27.0 - Ataxia, unspecified Status: Acute Assessment and Plan: Patient was initially thought to have vertigo in the ER but symptoms she is describing seem more consistent with ataxia. Denies tinnitus, ear pain, recent infection. Otoscopic exam unremarkable. Denies dizziness/gait instability being related to position changes Her ataxia could be due to CVA verses toxicity from heavy alcohol use. Head CT and brain MRI unremarkable. PT/OT consulted Dizziness/lightheadedness and gait instability has resolved. (3) Elevated blood pressure reading without diagnosis of hypertension: Code(s): R03.0 - Elevated blood-pressure reading, without diagnosis of hypertension Status: Acute Assessment and Plan: Elevated BP extending back to 2021, currently not on antihypertensives Blood pressures remain elevated but stable, continue to monitor Hydralazine prn for systolic > 180 (4) Transaminitis: Code(s): R74.01 - Elevation of levels of liver transaminase levels Status: Acute Assessment and Plan: Patient does have slightly elevated transaminases on admission, continue to downtrend Transaminitis could be due to patient's heavy alcohol use or related abnormal CT of the liver with a 3.0 x 4.0 x 3.7 cm hypodense structure in the medial segment of the left lobe of the liver and about the falciform ligament. Differential includes but is not limited to focal fatty infiltration or mass. MRI showed Diffuse hepatic steatosis with 2.4 x 1.2 cm more focal collection of fat at the junction of the left and right navarro hepatis corresponding to the hypodense lesion of concern on prior CT. Will need outpatient follow up with PCP and/or GI. (5) Alcoholism with alcohol dependence: Qualifiers: Substance use status: alcohol-induced anxiety disorder Qualified Code(s): F10.280 - Alcohol dependence with alcohol-induced anxiety disorder Code(s): F10.20 - Alcohol dependence, uncomplicated Status: Acute Assessment and Plan: Drinks 1.75 l of scotch per week for past year. She denies prior withdraw but states has only been sober for no longer than 24 hours. High-dose thiamin 500 mg IV q.8 hours x3 days. Continue vitamin replacement of folic acid and multivitamin The patient verbalizes desire to stop drinking alcohol to excess. Care coordination consulted. CIWA 0-1. Patient started on scheduled Valium for treatment of alcohol withdrawal on admission, will start to taper tomorrow starting with 10 mg q8h, then 10 mg BID, then 10 mg HS, then stop. Continue p.r.n. Valium as needed for scores 8-15. (6) Anxiety and depression: Code(s): F41.9 - Anxiety disorder, unspecified; F32.A - Depression, unspecified Status: Acute Assessment and Plan: She related her heavy alcohol use to anxiety as she was previously taking nortriptyline and lexapro however this was stopped by her psychiatrist to trial Cymbalta. She has not seen the psychiatrist in over a year. Do not feel comfortable starting the patient on antidepressant without her having outpatient follow-up. Psychiatry consulted sertraline 25mg daily for anxiety, depression Discussed follow up plan- recommend she follow up with psychiatry [facility] outpatient once discharged. She may follow up at [facility] at discharge for medication management and psychotherapy. Social work may call to schedule apt at [phone] at discharge. Educated patient on Walk In Clinic if sooner apt is needed (7) Pancreatic lesion: Code(s): K86.9 - Disease of pancreas, unspecified Status: Acute Assessment and Plan: Abdomen MRI showed Incidental 6 mm simple appearing cystic lesion at the tail the pancreas. Will need a 2 year follow-up pre and postcontrast MRI, to be ordered per PCP (8) Macrocytosis without anemia: Code(s): D75.89 - Other specified diseases of blood and blood-forming organs Status: Acute Assessment and Plan: The patient has macrocytosis without diagnosis of anemia. B12 and folate WNL TSH WNL. Time Spent With Patient Time with patient: 25 - 35 minutes Subjective Date/time seen: 09/01/25 08:42 Interval history: 75-year-old female with a past medical history anxiety, depression, insomnia, benign positional vertigo, peripheral neuropathy and heavy alcohol use who presented to the hospital from urgent care due to UTI symptoms and difficulty walking. Patient is pleasant sitting up in bed. She states that feelings of off-balance and dizziness/lightheadedness has resolved. She also notes that the pain with urination and burning sensation has resolved. She has no complaints denying chest pain, palpitations, nausea/vomiting, abdominal pain. Review of Systems Review of Systems: All systems reviewed & are unremarkable except as noted in HPI and below Exam Narrative: AF HR 67 RR 14 Spo2 97 BP 145/60 General: female in no acute respiratory distress who is nontoxic appearing, sitting up in bed. HEENT: Normocephalic. Atraumatic. Extraocular movement intact. Sclera clear and anicteric. No facial asymmetry. TM without perforation, redness, or swelling. Chest: Lungs are clear to auscultation bilaterally. No wheezes or crackles. CV: Heart was regular rate and rhythm. Abd: Abdomen was soft. Nontender. Nondistended. Positive bowel sounds. Ext: No clubbing, cyanosis, or edema. DP pulses bilaterally. Neuro: Patient is alert. Speech is clear. Objective Data Vital Signs Vital Signs: Vital Signs - 24 hr 08/31/25 15:07 08/31/25 20:00 08/31/25 21:13 Temperature 97.5 F L Pulse Rate 77 Respiratory Rate 16 Blood Pressure 155/69 H 155/69 H Pulse Oximetry 99 Oxygen Delivery Room Air 08/31/25 21:40 08/31/25 23:37 09/01/25 06:00 Temperature 97.9 F 97.6 F Pulse Rate 78 67 Respiratory Rate 16 14 Blood Pressure 164/63 H 145/60 H Pulse Oximetry 98 98 97 Oxygen Delivery Room Air Intake/Output Intake/Output: Intake & Output 08/29/25 08/30/25 08/31/25 09/01/25 23:59 23:59 23:59 23:59 Intake Total 50 3480 300 Balance 50 3480 300 Meds/Results Medications: Active Medications Generic Name Dose Route Start Last Admin Trade Name Freq PRN Reason Stop Dose Admin Acetaminophen 650 mg 08/30/25 17:37 Acetaminophen 325 Mg Tablet PO Q4H PRN Mild Pain (1-3) or Fever Diazepam 10 mg 08/31/25 06:00 09/01/25 05:32 Diazepam (*Crx) 10 Mg Tablet PO [address] [facility] Administration Enoxaparin Sodium 40 mg 09/01/25 09:00 Enoxaparin 40 Mg/0.4 Ml Syringe SUB-Q DAILY ROXANNA Folic Acid 1 mg 08/31/25 09:00 08/31/25 08:27 Folic Acid 1 Mg Tablet PO 1 mg DAILY ROXANNA Administration Hydralazine HCl 10 mg 08/31/25 14:15 Hydralazine Hcl 20 Mg/Ml Vial IV PUSH Q8H PRN systolic > 180 Ceftriaxone Sodium 1 gm/ 50 mls @ 100 mls/hr 08/31/25 18:00 08/31/25 17:30 Sodium Chloride IVPB Infused Q24H [facility] Infusion Thiamine HCl 500 mg in 100 mls @ 200 mls/hr 08/31/25 01:00 09/01/25 00:31 IVPB 09/03/25 00:59 200 mls/hr Q8H [facility] Administration Lorazepam 2 mg 08/31/25 00:28 Lorazepam (*Crx) 1 Mg Tablet PO Q2H PRN CIWA>8, HR>100, or DBP>100 Meclizine HCl 12.5 mg 08/30/25 21:00 08/31/25 21:13 Meclizine Hcl 12.5 Mg Tablet PO 12.[address] [facility] Administration Multivitamins/Calcium 1 tablet 08/31/25 09:00 08/31/25 08:27 Therapeutic Multivitamins/Minerals Tab (*Bkc) PO [address] [facility] Administration Ondansetron HCl 4 mg 08/30/25 17:37 Ondansetron Inj 4 Mg/2 Ml Vial IV PUSH Q4H PRN Nausea Sertraline HCl 25 mg 09/01/25 09:00 Sertraline Hcl 25 [address] Table[address] QAM [facility] Radiology Results: ITS Impressions Head CT 08/30/25 13:59 IMPRESSION: 1. Normal aging brain. Abdomen/Pelvis CT 08/30/25 16:55 IMPRESSION: 1. Thickening of the patel of the bladder. Differential includes incomplete bladder wall distention versus cystitis. 2. There is a 3.0 x 4.0 x 3.7 cm hypodense structure in the medial segment of the left lobe of the liver and about the falciform ligament. Differential includes but is not limited to focal fatty infiltration or mass. A liver mass MRI is recommended for further assessment. 3. Large hiatal hernia. 4. Small fat-containing right inguinal hernia. Brain MRI 08/31/25 12:13 IMPRESSION: 1. Normal aging brain. Abdomen MRI 08/31/25 13:00 IMPRESSION: 1. Diffuse hepatic steatosis with 2.4 x 1.2 cm more focal collection of fat at the junction of the left and right navarro hepatis corresponding to the hypodense lesion of concern on prior CT. 2. Incidental 6 mm simple appearing cystic lesion at the tail the pancreas. Recommend 2 year follow-up pre and postcontrast MRI. 3. Moderate to large sliding-type hiatal hernia. Labs Labs: Laboratory Results - last 24 hr 08/31/25 08/31/25 08/31/25 05:33 12:52 18:26 POC Capillary Glucose 97 129 H Total T3 1.09 08/31/25 09/01/25 23:41 04:55 POC Capillary Glucose 109 H 99 Total T3 Quality VTE Prophylaxis VTE prophylaxis: pharmacologic ordered
[2025-09-01] MEDS: ENOXAPARIN 40 MG/0.4 ML SYRINGE SUB-Q (08:46)
[2025-09-01] MEDS: MECLIZINE HCL 12.5 MG TABLET PO ×4 (08:46→21:10)
[2025-09-01] MEDS: SERTRALINE HCL 25 MG TABLET PO (08:46)
[2025-09-01] MEDS: THERAPEUTIC MULTIVITAMINS/MINERALS TAB (*BKC) 1 TABLET PO (08:46)
[2025-09-01] MEDS: FOLIC ACID 1 MG TABLET PO (08:46)
[2025-09-01 10:37] LABS: Hematocrit 38.2 % (37.0-47.0); Hemoglobin 12.5 g/dL (12.0-15.0); Mean Corpuscular HGB Conc 32.7 g/dl (32-36); Mean Corpuscular Hemoglobin 35.5 pg (26-34); Mean Corpuscular Volume 108.5 fl (80-100); Platelet Count Result 193 k/mm3 (150-375); Red Blood Count 3.52 M/mm3 (4.2-5.4); White Blood Count 6.6 K/mm3 (4.5-10.0)
[2025-09-01 11:09] LABS: Alanine Aminotransferase 40 U/L (6-35); Albumin Level 4.1 g/dL (3.5-5.1); Alkaline Phosphatase 95 U/L (38-126); Anion Gap 6 mmol/L (4-12); Aspartate Amino Transferase 59 U/L (14-36); Bilirubin,Total 0.6 mg/dL (0.2-1.3); Blood Urea Nitrogen 9 mg/dL (7-17); Calcium 9.5 mg/dL (8.4-10.2); Carbon Dioxide 29 mmol/L (22-30); Chloride 102 mmol/L (98-107); Estimated CRCL calculation 47 ml/min; Estimated Glomerular Filt Rate > 60; Glucose 79 mg/dL (65-110); Potassium 4.0 mmol/L (3.4-5.0); Sodium 137 mmol/L (137-145); Total Protein 7.1 g/dL (6.3-8.2)
[2025-09-01 15:36] VITALS: BP 149/69; PULSE 80; RESP 16; TEMP 37.1; O2SAT 95
[2025-09-01] MEDS: cefTRIAXone 1 GM in SODIUM CHLORIDE 0.9% IV 50 ML 100 ML IVPB (17:51)
[2025-09-01 22:00] VITALS: BP 142/62; PULSE 78; RESP 18; TEMP 36.6; O2SAT 96
[2025-09-02] MEDS: THIAMINE 500 MG/NS 100 ML 500 MG/100 ML BAG 200 MG IVPB ×2 (00:20→08:16)
[2025-09-02] MEDS: diazePAM (*CRX) 10 MG TABLET PO ×3 (00:21→13:29)
[2025-09-02 06:00] VITALS: BP 124/67; PULSE 73; RESP 16; TEMP 36.6; O2SAT 98
[2025-09-02 07:30] LABS: Hematocrit 42.0 % (37.0-47.0); Hemoglobin 13.5 g/dL (12.0-15.0); Mean Corpuscular HGB Conc 32.1 g/dl (32-36); Mean Corpuscular Hemoglobin 35.7 pg (26-34); Mean Corpuscular Volume 111.1 fl (80-100); Platelet Count Result 186 k/mm3 (150-375); Red Blood Count 3.78 M/mm3 (4.2-5.4); White Blood Count 5.6 K/mm3 (4.5-10.0)
[2025-09-02 07:34] LABS: Alanine Aminotransferase 36 U/L (6-35); Albumin Level 4.0 g/dL (3.5-5.1); Alkaline Phosphatase 92 U/L (38-126); Anion Gap 11 mmol/L (4-12); Aspartate Amino Transferase 71 U/L (14-36); Bilirubin,Total 0.6 mg/dL (0.2-1.3); Blood Urea Nitrogen 13 mg/dL (7-17); Calcium 8.8 mg/dL (8.4-10.2); Carbon Dioxide 20 mmol/L (22-30); Chloride 107 mmol/L (98-107); Estimated CRCL calculation 48 ml/min; Estimated Glomerular Filt Rate > 60; Glucose 74 mg/dL (65-110); Potassium 3.9 mmol/L (3.4-5.0); Sodium 138 mmol/L (137-145); Total Protein 7.2 g/dL (6.3-8.2)
[2025-09-02] MEDS: MECLIZINE HCL 12.5 MG TABLET PO ×2 (08:16→13:28)
[2025-09-02] MEDS: SERTRALINE HCL 25 MG TABLET PO (08:16)
[2025-09-02] MEDS: THERAPEUTIC MULTIVITAMINS/MINERALS TAB (*BKC) 1 TABLET PO (08:16)
[2025-09-02] MEDS: ENOXAPARIN 40 MG/0.4 ML SYRINGE SUB-Q (08:16)
[2025-09-02] MEDS: FOLIC ACID 1 MG TABLET PO (08:17)
--- NOTE | 2025-09-02 13:18 | P.DS_ITS ---
DS: Admitting Diagnosis Discharge Date 09/02/2025 Admitting Diagnosis acute uti ataxia elevated bp transaminitis alcoholism anxiety and depression pancreatic lesion macrocytosis without anemia DS: Discharge Diagnosis Discharge Diagnosis (1) Acute UTI: Code(s): N39.0 - Urinary tract infection, site not specified Status: Acute (2) Ataxia: Code(s): R27.0 - Ataxia, unspecified Status: Acute (3) Elevated blood pressure reading without diagnosis of hypertension: Code(s): R03.0 - Elevated blood-pressure reading, without diagnosis of hypertension Status: Acute (4) Transaminitis: Code(s): R74.01 - Elevation of levels of liver transaminase levels Status: Acute (5) Alcoholism with alcohol dependence: Qualifiers: Substance use status: alcohol-induced anxiety disorder Qualified Code(s): F10.280 - Alcohol dependence with alcohol-induced anxiety disorder Code(s): F10.20 - Alcohol dependence, uncomplicated Status: Acute (6) Anxiety and depression: Code(s): F41.9 - Anxiety disorder, unspecified; F32.A - Depression, unspecified Status: Acute (7) Pancreatic lesion: Code(s): K86.9 - Disease of pancreas, unspecified Status: Acute (8) Macrocytosis without anemia: Code(s): D75.89 - Other specified diseases of blood and blood-forming organs Status: Acute DS: Summary Hospital Course Reason for hospitalization: acute uti ataxia elevated bp transaminitis alcoholism anxiety and depression pancreatic lesion macrocytosis without anemia Hospital Course: 75-year-old female with a past medical history anxiety, depression, insomnia, benign positional vertigo, peripheral neuropathy and heavy alcohol use who presented to the hospital from urgent care due to UTI symptoms and difficulty walking concerning for ataxia. Head CT and brain MRI unremarkable. Patient started on meclizine and remains on this as needed for dizziness. At time of discharge patient denies any difficulty with ambulation as well as dizziness/lightheadedness/weakness. She worked with PT/OT who recommended outpatient therapy. Script provided. Patient reportedly drinks 1.75 L of scotch per week for past year. She denies prior withdraw but states has only been sober for no longer than 24 hours. She was started on thiamine, folic acid and multivitamin on admission. Patient was also started on scheduled Valium which will continue to be tapered at time of discharge. Had a lengthy conversation with patient about alcohol cessation and the use of Valium for alcohol withdraw. She states understanding and received resources from care coordination for continued cessation. At time of discharge patients CIWA scores remained negative with stable vital signs. Patient had slightly elevated transaminases on admission which continued to downtrend. Transaminitis could be due to patient's heavy alcohol use or related abnormal CT of the liver with a 3.0 x 4.0 x 3.7 cm hypodense structure in the medial segment of the left lobe of the liver and about the falciform ligament. MRI showed Diffuse hepatic steatosis with 2.4 x 1.2 cm more focal collection of fat at the junction of the left and right navarro hepatis corresponding to the h ypodense lesion of concern on prior CT. Discussed with patient that she will need outpatient follow up with PCP and/or GI about the hepatic steatosis and she states understanding. Of note patient was relating her heavy alcohol consumption to anxiety, stating that she previously was seen by psychiatry however they changed her medications which she has not been taking and has not been see in in over a year. Psychiatry was consulted and started patient on sertraline 25 mg daily for anxiety and depression. Psychiatry discussed with patient that she needs to follow up with psychiatry [facility] on discharge and gave her information to their office. This was reiterated at time of discharge and psychiatry number was attached to patients discharge instructions. Patient noted to have dysuria and burning sensation on admission. Started on IV antibiotics. Urine culture grew ecoli pansensitive.Transitioned to oral antibiotics at discharge. Patient denied all UTI like symptoms at discharge. On the abdomen MRI an incidental 6 mm simple appearing cystic lesion at the tail the pancreas. Discussed with patient that she will require a 2 year follow-up pre and postcontrast MRI, to be ordered per PCP. She states understanding. Patient was noted to have elevated blood pressures throughout admission, however these remained stable. On chart review patient has been having elevated BP since 2021. Discussed with her that she is to monitor BP at home and record the findings for her PCP follow up to further assess need for antihypertensives. Patient stated understanding. Patient had no complaints at time of discharge denying chest pain, shortness a breath, palpitations, nausea / vomiting, abdominal pain, dizziness / lightheadedness/ weakness with ambulation. Patient discharged home with outpatient therapy in a stable condition. She is to follow up with the provided PCP in 1 week and psychiatry as scheduled. Status at Discharge Functional status at discharge: uses cane/walker Time Spent with Patient Time attestation: Total time spent providing and/or coordinating discharge services: Time spent: Greater than 30 minutes Exam Narrative: AF HR 73 RR 16 SpO2 98 BP 124/67 General: female in no acute respiratory distress who is nontoxic appearing, sitting up in bed. HEENT: Normocephalic. Atraumatic. Extraocular movement intact. Sclera clear and anicteric. No facial asymmetry. Chest: Lungs are clear to auscultation bilaterally. No wheezes or crackles. CV: Heart was regular rate and rhythm. Abd: Abdomen was soft. Nontender. Nondistended. Positive bowel sounds. Ext: No clubbing, cyanosis, or edema. DP pulses bilaterally. Neuro: Patient is alert. Strength is 5/5 in upper and lower extremities. Speech is clear. DS: Data Data Completed and Pending Completed studies during hospitalization: abdomen mri brain mri abdomen/pelvis ct head ct Labs on day of discharge: Labs from last 24 hours 09/02/25 09/02/25 09/02/25 11:46 05:51 04:47 WBC 5.6 RBC 3.78 L Hgb 13.5 Hct 42.0 MCV 111.1 H MCH 35.7 H MCHC 32.1 RDW 13.9 Plt Count 186 MPV 10.5 H Sodium 138 Potassium 3.9 Chloride 107 Carbon Dioxide 20 L Anion Gap 11 BUN 13 Creatinine 0.81 Estim Creat Clear Calc 48 Estimated GFR > 60 Glucose 74 POC Capillary Glucose 103 91 Calcium 8.8 Total Bilirubin 0.6 AST 71 H ALT 36 H Alkaline Phosphatase 92 Total Protein 7.2 Albumin 4.0 09/01/25 09/01/25 23:37 17:00 WBC RBC Hgb Hct MCV MCH MCHC RDW Plt Count MPV Sodium Potassium Chloride Carbon Dioxide Anion Gap BUN Creatinine Estim Creat Clear Calc Estimated GFR Glucose POC Capillary Glucose 101 91 Calcium Total Bilirubin AST ALT Alkaline Phosphatase Total Protein Albumin Discharge Plan Discharge Attending physician on discharge: Guy Huizar Consulting providers: Fern Zayas; Jimbo Zee Discharging Clinician: Fern Zayas Anticipated Discharge Date/Time: 09/02/25 12:45 Patient Disposition: Home Activity: as tolerated Diet: as tolerated Discharge Instructions: Discharge disposition: Patient admitted to the hospital for gait instability Imaging unremarkable Continue meclizine as needed for dizziness Continue outpatient physical therapy History of heavy alcohol use Strongly encourage continued alcohol cessation, resources have been given by care coordination 1. Symptom Monitoring for withdrawal * Watch for worsening symptoms such as severe anxiety, confusion, hallucinations, persistent vomiting, seizures, or trouble staying awake. If any of these occur, seek emergency care immediately. * Continue to monitor for milder symptoms like tremors, sweating, trouble sleeping, or feeling very nervous. These are common but should gradually improve over several days.[2][4] 2. Medication * Take all prescribed medications exactly as directed. Do not take extra doses or skip doses. If you have questions or side effects, contact your healthcare provider. * Continue Valium taper, finish the course as instructed. Do not use alcohol or other sedatives while taking these medications. * Take thiamine (vitamin B1) 100 mg by mouth daily and folic acid 1 mg by mouth daily 5. Ongoing Recovery * Consider joining a support group or starting long-term treatment for alcohol use disorder. Medications and counseling can help prevent relapse and support your recovery. * If you feel depressed, hopeless, or have thoughts of harming yourself, seek help immediately. Patient endorsed ongoing anxiety and depression Evaluated by psychiatry Started on sertraline 25mg daily, attached is information on this medication Discussed follow up plan- recommend she follow up with psychiatry [facility] outpatient once discharged. She may follow up at [facility] at discharge for medication management and psychotherapy. Social work may call to schedule apt at [phone] at discharge. Educated patient on Walk In Clinic if sooner apt is needed Patient diagnosed with a UTI during admission Take all medications as prescribed even if feeling better Cefpodoxime twice a day, attached is information on this medication Eat well balanced meals and stay hydrated Keep active to remain strong Avoid use of diapers or pads Good ruddy Care every 2 hours Trend urine output Patient had elevated liver enzymes on admission Imaging showed hepatic steatosis Follow up with pcp and/or GI in the outpatient setting Attached is information to [facility] Abdomen MRI showed incidental 6 mm simple appearing cystic lesion at the tail the pancreas. Will need a 2 year follow-up pre and postcontrast MRI, to be ordered per PCP Elevated BP extending back to 2021, currently not on antihypertensives Monitor blood pressures, record results at home for PCP follow up Take caution while standing, rising, or moving Change positions slowly taking a break between each position change If you standing feel dizzy sit back down and take a break Encouraged to continue with yearly vaccinations Return to the emergency department if he developed sudden shortness of breath, chest pain, nausea, vomiting, upset stomach or intractable diarrhea Return to the emergency department if you develop fever greater than 100.5 Follow-up with the primary care physician within 1-2 weeks Thank you for choosing [facility] for your healthcare needs Patient Instructions: Antibiotic Form, Diazepam (By mouth), Meclizine (By mouth), Sertraline (By mouth), Cefpodoxime Proxetil (By mouth), Non-Alcoholic Fatty Liver Disease (DC), Alcohol Withdrawal (DC), Alcohol Use Disorder (DC), Suicide Prevention (DC) Patient Language: Burkinan Stand Alone Forms: General Discharge Information Follow-up/Referrals: Jimbo Zee MD [Physician, Psychiatry] - Call for Appointment Maurisio Chang MD [Physician, Gastroenterology] - Call for Appointment Julius Downey MD [Physician, Family Practice] - 1 Week Discharge Medications: New meclizine 12.5 mg Tablet 12.5 mg PO PRN Qty: 15 0RF folic acid 1 mg Tablet 1 mg PO DAILY Qty: 30 0RF sertraline [Zoloft] 50 mg Tablet 25 mg PO QAM Qty: 30 0RF thiamine HCl (vitamin B1) 100 mg capsule 100 mg PO DAILY Qty: 30 0RF cefpodoxime 200 mg tablet 200 mg PO Q12H Qty: 8 0RF Rx Instructions: must administer with a meal/food diazepam [Valium] 10 mg tablet 10 mg PO .taper 1 Days Qty: 4 0RF Rx Instructions: 10 mg (1tablet) to start tonight, 10 mg (1 tablet) q12 hours on 08/03, and 10 mg (1tablet) at night on 08/04, then stop Continued acetaminophen 500 mg capsule 500 mg PO Q6H PRN (Reason: pain) Qty: 30 0RF ibuprofen 400 mg tablet 400 mg PO Q6H PRN (Reason: pain) Qty: 30 0RF Other Ambulatory Orders: PT Outpatient Eval and Treat (ONCE) Timeframe: [id number] Location: Determined by Patient Ordered By: Fern Zayas Date of admission: 08/31/25 15:45 Primary Care Provider: PHYSICIAN NOT ON STAFF,NONSTAFF Admitting Provider: Jh Weller Attending physician on admission: Jh Weller Condition: Stable Hospitalist MIPS Heart Failure (Exclusion) Patient has history of Heart Transplant or Left Ventricular Assistive Device?: No IF YES, STOP HERE Heart Failure (Qualifier) Patient has current or prior documentation of LVEF less than or equal to 40%, or mod/servere depressed LVSF?: No IF NO, STOP HERE
[2025-09-02] MEDS: ACETAMINOPHEN 325 MG TABLET 650 MG PO (13:29)
== END 2025-09-02 15:07 | disposition home or self-care (01) | DRG 690 ==
LOC: ANHED 17:27 → ANH3MEDSUR 18:32
PROVIDERS: Internal Medicine; Admitting Provider Family Medicine; Emergency Provider Family Medicine; Visit Provider Student in an Organized Health Care Education/Training Program
DX: N39.0 Urinary tract infection, site not specified (principal); E44.0 Moderate protein-calorie malnutrition; R31.0 Gross hematuria; F10.20 Alcohol dependence, uncomplicated; F41.9 Anxiety disorder, unspecified; F32.A Depression, unspecified; I45.10 Unspecified right bundle-branch block; G62.9 Polyneuropathy, unspecified; K21.9 Gastro-esophageal reflux disease without esophagitis; R03.0 Elevated blood-pressure reading, without diagnosis of hypertension; D75.89 Other specified diseases of blood and blood-forming organs; E03.9 Hypothyroidism, unspecified; E86.0 Dehydration; K86.9 Disease of pancreas, unspecified; K44.9 Diaphragmatic hernia without obstruction or gangrene; K76.0 Fatty (change of) liver, not elsewhere classified; B96.20 Unspecified Escherichia coli [E. coli] as the cause of diseases classified elsewhere; Z90.49 Acquired absence of other specified parts of digestive tract; Z68.26 Body mass index [BMI] 26.0-26.9, adult; Z91.51 Personal history of suicidal behavior; Z91.81 History of falling; Z86.69 Personal history of other diseases of the nervous system and sense organs
CPT/HCPCS: 36415; 70450; 70551; 74176; 74183; 80053; 80074; 81001; 82607; 82746; 82948; 83735; 84100; 84439; 84443; 84480; 84484; 85025; 85027; 87086; 87186; 93005; 96361; 96365; 96366; 96367; 97161; 97166; 99285; A9270; A9577; G0378; J0696; J1650; J3411; J7030